=== PATIENT | female | born 1940 | race Caucasian/White ===

== ENCOUNTER → 2016-12-30 | Outpatient (CLI) | payer OTHER ==
[~2016-12-30] MED LIST: BRIN1SUS OP; TIMO0.5S32 OP; TRAV0.007 OP
[2016-12-30 09:27] LABS: Urine RBC None Seen /hpf (0 - 4)
[2016-12-30 09:35] LABS: Basophils # (auto) 0.1 uL; Basophils % (auto) 1.8 % (0.0-2.0); Eosinophils # (auto) 0.5 uL; Eosinophils % (auto) 7.8 % (0.0-7.0); Hematocrit 46.1 % (36.0-46.0); Hemoglobin 14.4 g/dL (12.2-16.2); Lymphocytes # (auto) 1.8 uL; Lymphocytes % (auto) 27.6 % (10.0-50.0); Mean Corpuscular Hemoglobin 28.6 pg (28.0-32.0); Mean Corpuscular Hgb Conc. 31.3 g/dL (32.0-36.0); Mean Corpuscular Volume 91.6 fL (80.0-100.0); Monocytes # (auto) 0.6 uL; Monocytes % (auto) 8.9 % (0.0-12.0); Neutrophils # (auto) 3.5 uL; Neutrophils % (auto) 53.9 % (37.0-80.0); Platelet Count (auto) 199 10^3/uL (140-450); White Blood Cell 6.6 10^3/uL (4.4-10.8)
[2016-12-30 09:46] LABS: Urine Bilirubin Negative (Negative); Urine Blood Negative /uL (Negative); Urine Color Yellow (Yellow); Urine Glucose Normal (Normal); Urine Ketone Negative (Negative); Urine Nitrite Negative (Negative); Urine Squamous Epithelial Cell FEW /hpf (<5); Urine Urobilinogen Normal (Negative)
[2016-12-30 09:58] LABS: Potassium 3.9 mmol/L (3.5-5.1)
[2016-12-30 10:07] LABS: Albumin 3.8 g/dL (3.4-5.0); Bilirubin, Total 0.4 mg/dL (0.2-1.0); Calcium 8.9 mg/dL (8.5-10.1); Total Protein 7.2 g/dL (6.4-8.2)
== END | disposition home or self-care (01) ==
LOC: LAB 08:51
PROVIDERS: ATTEND Internal Medicine
DX: Z00.00 Encounter for general adult medical examination without abnormal findings (principal)
CPT/HCPCS: 36415; 80053; 80061; 81001; 82270; 83036; 84443; 85025; 85652; 86141

== ENCOUNTER → 2017-01-31 | Outpatient (CLI) | payer OTHER | END | disposition home or self-care (01) | LOC: XY 10:43 | PROVIDERS: ATTEND Internal Medicine | DX: I73.89 Other specified peripheral vascular diseases (principal); I70.8 Atherosclerosis of other arteries; I74.3 Embolism and thrombosis of arteries of the lower extremities; I74.2 Embolism and thrombosis of arteries of the upper extremities | CPT/HCPCS: 93923; 93925 ==

== ENCOUNTER → 2017-03-15 | Outpatient (CLI) | payer OTHER | END | disposition home or self-care (01) | LOC: LAB 13:32 | PROVIDERS: ATTEND Internal Medicine | DX: I74.9 Embolism and thrombosis of unspecified artery (principal) | CPT/HCPCS: 36415; 82565; 84520 ==

== ENCOUNTER → 2017-06-08 | Outpatient (CLI) | payer OTHER ==
[2017-06-08 09:50] LABS: Urine RBC None Seen /hpf (0 - 4)
[2017-06-08 10:03] LABS: Urine Bilirubin Negative (Negative); Urine Blood Negative /uL (Negative); Urine Color Yellow (Yellow); Urine Glucose Normal (Normal); Urine Ketone Negative (Negative); Urine Nitrite Negative (Negative); Urine Squamous Epithelial Cell FEW /hpf (<5); Urine Urobilinogen Normal (Negative)
[2017-06-08 10:04] LABS: Basophils # (auto) 0.1 uL; Basophils % (auto) 1.2 % (0.0-2.0); CONDITION Y; Eosinophils # (auto) 0.4 uL; Eosinophils % (auto) 6.9 % (0.0-7.0); Hematocrit 44.7 % (36.0-46.0); Hemoglobin 14.7 g/dL (12.2-16.2); Lymphocytes # (auto) 1.7 uL; Lymphocytes % (auto) 26.4 % (10.0-50.0); Mean Corpuscular Hemoglobin 30.4 pg (28.0-32.0); Mean Corpuscular Hgb Conc. 32.9 g/dL (32.0-36.0); Mean Corpuscular Volume 92.4 fL (80.0-100.0); Mean Platelet Volume 12.2 fL (7.4-10.4); Monocytes # (auto) 0.7 uL; Monocytes % (auto) 10.4 % (0.0-12.0); Neutrophils # (auto) 3.5 uL; Neutrophils % (auto) 55.1 % (37.0-80.0); Platelet Count (auto) 188 10^3/uL (140-450); Red Cell Distribution Width 12.6 % (11.6-16.0); SUSPECT SEE PRINTOUT; White Blood Cell 6.4 10^3/uL (4.4-10.8)
[2017-06-08 10:12] LABS: INR 1.08 (0.9-1.15); Prothrombin Time 11.8 sec (9.37-12.3)
[2017-06-08 10:30] LABS: BUN/Creatinine Ratio 27.5; Calcium 8.9 mg/dL (8.5-10.1); Potassium 4.2 mmol/L (3.5-5.1)
[2017-06-08 11:32] LABS: Platelet Estimate Adequate; RBC Morphology Normal
== END | disposition home or self-care (01) ==
LOC: LAB 07:57
PROVIDERS: ATTEND Internal Medicine
DX: I10 Essential (primary) hypertension (principal); E78.2 Mixed hyperlipidemia; E11.9 Type 2 diabetes mellitus without complications; I70.202 Unspecified atherosclerosis of native arteries of extremities, left leg
CPT/HCPCS: 36415; 80048; 80061; 81001; 83036; 85025; 85610

== ENCOUNTER → 2017-09-13 | Outpatient (CLI) | payer OTHER ==
[~2017-09-13] MED LIST changes: -BRIN1SUS OP; +DORZ1SOL OP; +LATA0.0015 EACHEYE; -TRAV0.007 OP
[2017-09-13 09:46] LABS: Basophils # (auto) 0.1 uL; Basophils % (auto) 1.2 % (0.0-2.0); Eosinophils # (auto) 0.3 uL; Eosinophils % (auto) 3.9 % (0.0-7.0); Hematocrit 42.5 % (36.0-46.0); Hemoglobin 13.9 g/dL (12.2-16.2); Lymphocytes # (auto) 1.5 uL; Lymphocytes % (auto) 22.9 % (10.0-50.0); Mean Corpuscular Hemoglobin 30.3 pg (28.0-32.0); Mean Corpuscular Hgb Conc. 32.7 g/dL (32.0-36.0); Mean Corpuscular Volume 92.8 fL (80.0-100.0); Mean Platelet Volume 11.3 fL (6.9-10.8); Monocytes # (auto) 0.7 uL; Monocytes % (auto) 10.5 % (0.0-12.0); Neutrophils % (auto) 61.5 % (37.0-80.0); Platelet Count (auto) 145 10^3/uL (140-450); White Blood Cell 6.5 10^3/uL (4.4-10.8)
[2017-09-13 10:03] LABS: Albumin 4.3 g/dL (3.4-5.0); BUN/Creatinine Ratio 22.7; Bilirubin, Total 0.6 mg/dL (0.2-1.0); Calcium 9.2 mg/dL (8.5-10.1); Potassium 3.9 mmol/L (3.5-5.1); Total Protein 7.7 g/dL (6.4-8.2)
== END | disposition home or self-care (01) ==
LOC: LAB 09:16
PROVIDERS: ATTEND Internal Medicine
DX: I10 Essential (primary) hypertension (principal); E78.2 Mixed hyperlipidemia; E11.9 Type 2 diabetes mellitus without complications; Z79.899 Other long term (current) drug therapy
CPT/HCPCS: 36415; 80053; 80061; 83036; 85025

== ENCOUNTER 2018-03-27 15:00 | Emergency (ER) | payer OTHER ==
[~2018-03-27] VITALS: Ht 154.9 cm; Wt 47.6 kg
[2018-03-27 19:24] VITALS: BP 167/58
[2018-03-27 19:56] LABS: Urine Amorphous Crystal FEW /hpf (None Seen); Urine Bacteria FEW /hpf (None Seen); Urine Blood Negative /uL (Negative); Urine Specific Gravity 1.013 (1.001-1.035); Urine WBC 24 /hpf (0 - 5)
== END 2018-03-27 20:23 | disposition home or self-care (01) ==
LOC: ER 15:00
DX: M79.604 Pain in right leg (principal); J44.9 Chronic obstructive pulmonary disease, unspecified; Z79.899 Other long term (current) drug therapy; Z98.51 Tubal ligation status; Z89.612 Acquired absence of left leg above knee; Z86.718 Personal history of other venous thrombosis and embolism
CPT/HCPCS: 81001; 93971

== ENCOUNTER → 2018-04-18 | Outpatient (CLI) | payer OTHER ==
[2018-04-18 08:32] LABS: Basophils # (auto) 0 uL; Basophils % (auto) 0.3 % (0.0-2.0); Eosinophils # (auto) 0.2 uL; Eosinophils % (auto) 2.5 % (0.0-7.0); Hematocrit 44.5 % (36.0-46.0); Hemoglobin 14.6 g/dL (12.2-16.2); Lymphocytes # (auto) 1.2 uL; Lymphocytes % (auto) 19.2 % (10.0-50.0); Mean Corpuscular Hemoglobin 30.7 pg (28.0-32.0); Mean Corpuscular Hgb Conc. 32.9 g/dL (32.0-36.0); Mean Corpuscular Volume 93.2 fL (80.0-100.0); Monocytes # (auto) 0.6 uL; Monocytes % (auto) 9.1 % (0.0-12.0); Neutrophils # (auto) 4.3 uL; Neutrophils % (auto) 68.9 % (37.0-80.0); Nucleated Red Blood Cells % 0.1 %; Platelet Count (auto) 208 10^3/uL (140-450); Red Blood Cells 4.78 10^6/uL (4.0-5.20); White Blood Cell 6.2 10^3/uL (4.4-10.8)
[2018-04-18 09:45] LABS: Albumin 3.8 g/dL (3.4-5.0); BUN/Creatinine Ratio 28.1; Bilirubin, Total 0.3 mg/dL (0.2-1.0); Calcium 9.4 mg/dL (8.5-10.1); Potassium 4.1 mmol/L (3.5-5.1); Total Protein 7.4 g/dL (6.4-8.2)
== END | disposition home or self-care (01) ==
LOC: LAB 08:05
PROVIDERS: ATTEND Internal Medicine
DX: Z00.01 Encounter for general adult medical examination with abnormal findings (principal); N39.0 Urinary tract infection, site not specified; E78.5 Hyperlipidemia, unspecified; R79.89 Other specified abnormal findings of blood chemistry
CPT/HCPCS: 36415; 80053; 80061; 82270; 82306; 83036; 84443; 85025; 87086

== ENCOUNTER → 2018-05-22 | Outpatient (CLI) | payer OTHER | END | disposition home or self-care (01) | LOC: LAB 14:54 | PROVIDERS: ATTEND Internal Medicine | DX: L03.90 Cellulitis, unspecified (principal); J44.9 Chronic obstructive pulmonary disease, unspecified; E78.5 Hyperlipidemia, unspecified; I12.9 Hypertensive chronic kidney disease with stage 1 through stage 4 chronic kidney disease, or unspecified chronic kidney disease; E11.22 Type 2 diabetes mellitus with diabetic chronic kidney disease; N18.2 Chronic kidney disease, stage 2 (mild); E78.00 Pure hypercholesterolemia, unspecified; E03.9 Hypothyroidism, unspecified; Z79.899 Other long term (current) drug therapy | CPT/HCPCS: 87205 ==

== ENCOUNTER → 2018-07-06 | Outpatient (CLI) | payer OTHER ==
[~2018-07-06] MED LIST changes: +ASPI-231 PO; +ATOR10TA52 PO
== END | disposition home or self-care (01) ==
LOC: XY 09:09
PROVIDERS: ATTEND Podiatrist
DX: I77.1 Stricture of artery (principal); I73.9 Peripheral vascular disease, unspecified; M25.474 Effusion, right foot; J44.9 Chronic obstructive pulmonary disease, unspecified; Z79.899 Other long term (current) drug therapy
CPT/HCPCS: 93925

== ENCOUNTER → 2018-08-02 | Outpatient (CLI) | payer OTHER ==
[2018-08-02 16:00] LABS: Basophils # (auto) 0.1 uL; Eosinophils # (auto) 0.2 uL; Eosinophils % (auto) 3.4 % (0.0-7.0); Hematocrit 44.5 % (36.0-46.0); Hemoglobin 15.2 g/dL (12.2-16.2); Lymphocytes # (auto) 1.8 uL; Lymphocytes % (auto) 27.6 % (10.0-50.0); Mean Corpuscular Hemoglobin 31.6 pg (28.0-32.0); Mean Corpuscular Hgb Conc. 34.1 g/dL (32.0-36.0); Mean Corpuscular Volume 92.7 fL (80.0-100.0); Monocytes # (auto) 0.5 uL; Neutrophils # (auto) 3.9 uL; Nucleated Red Blood Cells % 0.1 %; Platelet Count (auto) 192 10^3/uL (140-450); Red Cell Distribution Width 13.3 % (11.8-14.3); White Blood Cell 6.6 10^3/uL (4.4-10.8)
[2018-08-02 16:14] LABS: INR 1.07 (0.9-1.15); Prothrombin Time 11.4 sec (9.27-12.13)
[2018-08-02 16:40] LABS: Albumin 4.4 g/dL (3.4-5.0); BUN/Creatinine Ratio 28.4; Bilirubin, Total 0.6 mg/dL (0.2-1.0); Calcium 9.6 mg/dL (8.5-10.1); Potassium 4.3 mmol/L (3.5-5.1); Total Protein 8.3 g/dL (6.4-8.2)
== END | disposition home or self-care (01) ==
LOC: LAB 15:23
PROVIDERS: ATTEND Internal Medicine
DX: Z01.818 Encounter for other preprocedural examination (principal); I73.9 Peripheral vascular disease, unspecified; J44.9 Chronic obstructive pulmonary disease, unspecified; I12.9 Hypertensive chronic kidney disease with stage 1 through stage 4 chronic kidney disease, or unspecified chronic kidney disease; N18.3 Chronic kidney disease, stage 3 (moderate); E03.9 Hypothyroidism, unspecified
CPT/HCPCS: 36415; 80053; 85025; 85610; 85730

== ENCOUNTER 2018-08-03 07:13 | Inpatient (IN) | payer OTHER ==
[~2018-08-03] VITALS: Ht 157.5 cm; Wt 46.5 kg
[~2018-08-03 07:13] MED LIST changes: -ASPI-231 PO; -ATOR10TA52 PO
[2018-08-03] MEDS ORDERED: LIDOCAINE 2%HCL (LOCAL ANESTH.) INJ 20ML MDV ONE (07:47)
[2018-08-03] MEDS ORDERED: IOHEXOL 350 MG/ML 100ML IJ ONE (07:51)
[2018-08-03] MEDS ORDERED: ANGIOMAX 250 MG VIAL IV ONE (09:02)
[2018-08-03] MEDS ORDERED: MIDAZOLAM HCL 1MG/1ML-2 ML VIAL ONE (09:03)
[2018-08-03] MEDS ORDERED: SODIUM CHL 0.9% 50 ML ONE (09:03)
[2018-08-03] MEDS ORDERED: fentaNYL CITRATE 100 MCG/2 ML VL ONE (09:03)
[2018-08-03] MEDS ORDERED: CLOPIDOGREL 300 MG TAB ONE (10:48)
[2018-08-03] MEDS ORDERED: ASPirin 325 MG TAB ONE (10:59)
[2018-08-03] MEDS ORDERED: ASPI-231 PO (12:24)
[2018-08-03] MEDS ORDERED: ATOR10TA52 PO (12:24)
[2018-08-03] MEDS ORDERED: ONDANSETRON HCL 4 MG/2 ML VIAL IV PRN (12:30)
[2018-08-03] MEDS ORDERED: HYDROcodone-ACET 5/325MG TAB PO PRN (12:30)
[2018-08-03] MEDS ORDERED: ACETAMINOPHEN 500 MG TAB PO PRN (12:30)
[2018-08-03 17:00] VITALS: BP 137/69
[2018-08-03 22:00] VITALS: BP 111/59
[2018-08-03] MEDS ORDERED: ATORVASTATIN 20 MG TAB PO SCH (22:00)
[2018-08-04 05:00] VITALS: BP 107/58
[2018-08-04 09:00] VITALS: BP 117/55
[2018-08-04] MEDS ORDERED: CLOPIDOGREL BISULFATE 75 MG TAB PO SCH (10:00)
[2018-08-04] MEDS ORDERED: ASPirin-EC 81 mg tab PO SCH (10:00)
[2018-08-04] MEDS ORDERED: ZONTIVITY 2.08 MG PO SCH (10:00)
[2018-08-04] MEDS ORDERED: PATIENTS OWN MEDICATION (Atorvastatin Calcium 1 TAB) PO SCH (10:00)
[2018-08-04 13:00] VITALS: BP 119/51
== END 2018-08-04 16:00 | disposition home or self-care (01) | DRG 271 ==
LOC: CATH 07:13 → TELE-CENTR 07:14
PROVIDERS: ADMIT Internal Medicine; ATTEND Internal Medicine
PROC: 047K341 Dilation of Right Femoral Artery with Drug-eluting Intraluminal Device, using Drug-Coated Balloon, Percutaneous Approach (ICD-10-PCS; principal; 2018-08-03)
PROC: 04CK3ZZ Extirpation of Matter from Right Femoral Artery, Percutaneous Approach (ICD-10-PCS; 2018-08-03)
PROC: B41G1ZZ Fluoroscopy of Left Lower Extremity Arteries using Low Osmolar Contrast (ICD-10-PCS; 2018-08-03)
PROC: B41F1ZZ Fluoroscopy of Right Lower Extremity Arteries using Low Osmolar Contrast (ICD-10-PCS; 2018-08-03)
DX: I73.9 Peripheral vascular disease, unspecified (principal); I74.3 Embolism and thrombosis of arteries of the lower extremities; I99.8 Other disorder of circulatory system; Z89.612 Acquired absence of left leg above knee; Z87.891 Personal history of nicotine dependence
CPT/HCPCS: 37227; 75716; 99152; 99153; A6257; J2250

== ENCOUNTER → 2018-08-20 | Outpatient (CLI) | payer OTHER ==
[~2018-08-20] MED LIST changes: +ASPI-231 PO; +ATOR10TA52 PO
== END | disposition home or self-care (01) ==
LOC: LAB 13:38
PROVIDERS: ATTEND Podiatrist
DX: Z01.818 Encounter for other preprocedural examination (principal); Z87.891 Personal history of nicotine dependence
CPT/HCPCS: 36415; 82565; 84520

== ENCOUNTER → 2018-10-05 | Outpatient (CLI) | payer OTHER ==
[~2018-10-05] MED LIST changes: +CILO100T PO; +CLOP75TA28 PO; +TIMO1SOL6 OP
[2018-10-05 11:38] LABS: Basophils # (auto) 0.1 uL; Basophils % (auto) 0.8 % (0.0-2.0); Eosinophils # (auto) 0.1 uL; Eosinophils % (auto) 1.8 % (0.0-7.0); Hematocrit 46.5 % (36.0-46.0); Hemoglobin 15.5 g/dL (12.2-16.2); Lymphocytes # (auto) 1.4 uL; Lymphocytes % (auto) 20.6 % (10.0-50.0); Mean Corpuscular Hemoglobin 31.3 pg (28.0-32.0); Mean Corpuscular Hgb Conc. 33.3 g/dL (32.0-36.0); Mean Corpuscular Volume 94.2 fL (80.0-100.0); Monocytes # (auto) 0.4 uL; Monocytes % (auto) 6.4 % (0.0-12.0); Neutrophils # (auto) 4.6 uL; Neutrophils % (auto) 70.4 % (37.0-80.0); Platelet Count (auto) 220 10^3/uL (140-450); Red Blood Cells 4.94 10^6/uL (4.0-5.20); Red Cell Distribution Width 12.6 % (11.8-14.3); White Blood Cell 6.5 10^3/uL (4.4-10.8)
[2018-10-05 12:00] LABS: INR 1.12 (0.9-1.15); Partial Thromboplastin Time 28.6 sec (23.78-33.04); Prothrombin Time 11.9 sec (9.27-12.13)
[2018-10-05 12:39] LABS: Potassium 3.9 mmol/L (3.5-5.1)
[2018-10-05 12:52] LABS: Albumin 4.3 g/dL (3.4-5.0); BUN/Creatinine Ratio 20.7; Bilirubin, Total 0.6 mg/dL (0.2-1.0); Calcium 9.5 mg/dL (8.5-10.1); Total Protein 8.1 g/dL (6.4-8.2)
== END | disposition home or self-care (01) ==
LOC: LAB 10:41
PROVIDERS: ATTEND Internal Medicine
DX: Z01.812 Encounter for preprocedural laboratory examination (principal)
CPT/HCPCS: 36415; 80053; 85025; 85610; 85730

== ENCOUNTER → 2019-03-29 | Outpatient (CLI) | payer OTHER ==
[~2019-03-29] MED LIST changes: -DORZ1SOL OP; -TIMO0.5S32 OP
[2019-03-29 10:09] LABS: Basophils # (auto) 0.1 uL; Basophils % (auto) 1.3 % (0.0-2.0); Eosinophils # (auto) 0.2 uL; Eosinophils % (auto) 2.8 % (0.0-7.0); Hematocrit 41.9 % (36.0-46.0); Hemoglobin 13.8 g/dL (12.2-16.2); Lymphocytes # (auto) 1.3 uL; Lymphocytes % (auto) 19.7 % (10.0-50.0); Mean Corpuscular Hemoglobin 30.1 pg (28.0-32.0); Mean Corpuscular Hgb Conc. 32.9 g/dL (32.0-36.0); Mean Corpuscular Volume 91.4 fL (80.0-100.0); Monocytes # (auto) 0.5 uL; Monocytes % (auto) 7.7 % (0.0-12.0); Neutrophils # (auto) 4.6 uL; Neutrophils % (auto) 68.5 % (37.0-80.0); Platelet Count (auto) 213 10^3/uL (140-450); Red Blood Cells 4.59 10^6/uL (4.0-5.20); White Blood Cell 6.7 10^3/uL (4.4-10.8)
[2019-03-29 10:14] LABS: Urine Bacteria NONE SEEN /hpf (None Seen); Urine Blood Negative /uL (Negative); Urine Specific Gravity 1.008 (1.001-1.035); Urine WBC <1 /hpf (0 - 5)
[2019-03-29 11:15] LABS: Potassium 3.9 mmol/L (3.5-5.1)
[2019-03-29 11:26] LABS: Albumin 4.1 g/dL (3.4-5.0); BUN/Creatinine Ratio 31.6; Bilirubin, Total 0.3 mg/dL (0.2-1.0); Calcium 9.1 mg/dL (8.5-10.1); Total Protein 7.5 g/dL (6.4-8.2)
== END | disposition home or self-care (01) ==
LOC: LAB 09:19
PROVIDERS: ATTEND Internal Medicine
DX: I73.9 Peripheral vascular disease, unspecified (principal); R73.03 Prediabetes
CPT/HCPCS: 36415; 80053; 80061; 81001; 82043; 83036; 84439; 84443; 85025; 85652

== ENCOUNTER → 2019-10-14 | Outpatient (CLI) | payer OTHER ==
[2019-10-14 12:08] LABS: Basophils # (auto) 0.1 uL; Eosinophils # (auto) 0.1 uL; Mean Corpuscular Volume 71.3 fL (80.0-100.0); Monocytes # (auto) 0.6 uL; White Blood Cell 7.6 10^3/uL (4.4-10.8)
[2019-10-14 12:10] LABS: Basophils % (auto) 0.8 % (0.0-2.0); Eosinophils % (auto) 1.3 % (0.0-7.0); Hematocrit 22.2 % (36.0-46.0); Lymphocytes # (auto) 1.5 uL; Mean Corpuscular Hemoglobin 20.8 pg (28.0-32.0); Mean Corpuscular Hgb Conc. 29.2 g/dL (32.0-36.0); Monocytes % (auto) 7.5 % (0.0-12.0); Neutrophils # (auto) 5.5 uL; Neutrophils % (auto) 71.4 % (37.0-80.0); Platelet Count (auto) 327 10^3/uL (140-450); Red Blood Cells 3.12 10^6/uL (4.0-5.20); Red Cell Distribution Width 19.7 % (11.8-14.3)
[2019-10-14 12:28] LABS: Hemoglobin 6.5 g/dL (12.2-16.2)
[2019-10-14 12:59] LABS: Albumin 3.6 g/dL (3.4-5.0); BUN/Creatinine Ratio 29.3; Calcium 8.7 mg/dL (8.5-10.1); Potassium 3.7 mmol/L (3.5-5.1)
[2019-10-14 13:02] LABS: Bilirubin, Total 0.3 mg/dL (0.2-1.0)
== END | disposition home or self-care (01) ==
LOC: LAB 11:47
PROVIDERS: ATTEND Internal Medicine
DX: R53.83 Other fatigue (principal); I10 Essential (primary) hypertension; J44.9 Chronic obstructive pulmonary disease, unspecified; Z87.891 Personal history of nicotine dependence
CPT/HCPCS: 36415; 80053; 84439; 84443; 85025

== ENCOUNTER → 2019-11-12 | Outpatient (CLI) | payer OTHER ==
[2019-11-12 11:16] LABS: Basophils # (auto) 0.1 uL; Eosinophils # (auto) 0.1 uL; Hemoglobin 10.8 g/dL (12.2-16.2); Monocytes # (auto) 0.5 uL; Neutrophils # (auto) 4.6 uL; Nucleated Red Blood Cells % 0.1 %; White Blood Cell 6.9 10^3/uL (4.4-10.8)
[2019-11-12 11:17] LABS: Basophils % (auto) 1.8 % (0.0-2.0); Eosinophils % (auto) 1.7 % (0.0-7.0); Hematocrit 34.6 % (36.0-46.0); Lymphocytes # (auto) 1.6 uL; Lymphocytes % (auto) 22.8 % (10.0-50.0); Mean Corpuscular Hemoglobin 22.4 pg (28.0-32.0); Mean Corpuscular Hgb Conc. 31.2 g/dL (32.0-36.0); Mean Corpuscular Volume 71.9 fL (80.0-100.0); Monocytes % (auto) 7.5 % (0.0-12.0); Neutrophils % (auto) 66.2 % (37.0-80.0); Platelet Count (auto) 281 10^3/uL (140-450); Red Blood Cells 4.82 10^6/uL (4.0-5.20)
[2019-11-12 11:20] LABS: Red Cell Distribution Width 23.1 % (11.8-14.3)
== END | disposition home or self-care (01) ==
LOC: LAB 10:53
PROVIDERS: ATTEND Internal Medicine
DX: D64.9 Anemia, unspecified (principal)
CPT/HCPCS: 36415; 83540; 85025

== ENCOUNTER → 2019-12-11 | Outpatient (CLI) | payer OTHER, MEDICARE ==
[2019-12-11 12:16] LABS: Basophils # (auto) 0.1 uL; Eosinophils # (auto) 0.1 uL; Lymphocytes % (auto) 21.6 % (10.0-50.0); Nucleated Red Blood Cells % 0.1 %
[2019-12-11 12:19] LABS: Eosinophils % (auto) 1.9 % (0.0-7.0); Hematocrit 39.1 % (36.0-46.0); Hemoglobin 12.7 g/dL (12.2-16.2); Lymphocytes # (auto) 1.2 uL; Mean Corpuscular Hemoglobin 25.7 pg (28.0-32.0); Mean Corpuscular Hgb Conc. 32.5 g/dL (32.0-36.0); Mean Corpuscular Volume 78.9 fL (80.0-100.0); Monocytes # (auto) 0.6 uL; Monocytes % (auto) 9.9 % (0.0-12.0); Neutrophils # (auto) 3.7 uL; Neutrophils % (auto) 65.6 % (37.0-80.0); Platelet Count (auto) 208 10^3/uL (140-450); Red Blood Cells 4.96 10^6/uL (4.0-5.20); White Blood Cell 5.6 10^3/uL (4.4-10.8)
[2019-12-11 12:20] LABS: Red Cell Distribution Width 31.8 % (11.8-14.3)
== END | disposition home or self-care (01) ==
LOC: LAB 11:48
PROVIDERS: ATTEND Internal Medicine Gastroenterology
DX: D64.9 Anemia, unspecified (principal)
CPT/HCPCS: 36415; 85025

== ENCOUNTER → 2019-12-23 | Outpatient (CLI) | payer OTHER | END | disposition home or self-care (01) | LOC: LAB 10:58 | PROVIDERS: ATTEND Internal Medicine | DX: D64.9 Anemia, unspecified (principal); I73.9 Peripheral vascular disease, unspecified | CPT/HCPCS: 82270 ==

== ENCOUNTER 2019-12-26 17:03 | Inpatient (IN) | payer OTHER ==
[~2019-12-26] VITALS: Ht 157.5 cm; Wt 47.5 kg
[2019-12-26 19:31] LABS: Basophils # (auto) 0.1 uL; Basophils % (auto) 1.6 % (0.0-2.0); Eosinophils # (auto) 0.2 uL; Eosinophils % (auto) 3.3 % (0.0-7.0); Hematocrit 41.3 % (36.0-46.0); Hemoglobin 13.8 g/dL (12.2-16.2); Lymphocytes # (auto) 1.8 uL; Lymphocytes % (auto) 29.2 % (10.0-50.0); Mean Corpuscular Hemoglobin 26.9 pg (28.0-32.0); Mean Corpuscular Hgb Conc. 33.3 g/dL (32.0-36.0); Mean Corpuscular Volume 80.8 fL (80.0-100.0); Monocytes # (auto) 0.6 uL; Monocytes % (auto) 9.2 % (0.0-12.0); Neutrophils # (auto) 3.5 uL; Neutrophils % (auto) 56.7 % (37.0-80.0); Platelet Count (auto) 186 10^3/uL (140-450); Red Blood Cells 5.11 10^6/uL (4.0-5.20); White Blood Cell 6.1 10^3/uL (4.4-10.8)
[2019-12-26 19:33] LABS: Red Cell Distribution Width 30.9 % (11.8-14.3)
[2019-12-26 19:45] LABS: Albumin 4.2 g/dL (3.4-5.0); BUN/Creatinine Ratio 37.3; Calcium 9.1 mg/dL (8.5-10.1); Potassium 3.5 mmol/L (3.5-5.1)
[2019-12-26 19:48] LABS: Bilirubin, Total 0.4 mg/dL (0.2-1.0); Total Protein 7.6 g/dL (6.4-8.2)
[2019-12-26 19:53] LABS: INR 1.14 (0.9-1.15); Partial Thromboplastin Time 27.4 sec (23.64-32.05)
[2019-12-26] MEDS ORDERED: MORPHINE SULF INJ 2 MG/ML SYRINGE 1ML IV PRN (21:15)
[2019-12-26] MEDS ORDERED: TEMAZEPAM 15 MG CAP PO PRN (21:15)
[2019-12-26] MEDS ORDERED: ONDANSETRON HCL 4 MG/2 ML VIAL IV PRN (21:15)
[2019-12-26] MEDS ORDERED: ACETAMINOPHEN 325 MG TAB PO PRN (21:15)
[2019-12-26] MEDS ORDERED: HYDROcodone-ACET 5/325MG TAB PO PRN (21:15)
[2019-12-26] MEDS: ATORVASTATIN 20 MG TAB PO SCH (21:30)
[2019-12-26] MEDS: SODIUM CHLORIDE 0.9% 1,000 ML IV SCH (21:30)
[2019-12-26] MEDS: FAMOTIDINE 20 MG TAB PO SCH (21:49)
[2019-12-26 22:00] VITALS: BP 155/78
--- NOTE | 2019-12-26 22:00 | NUR ---
Patient arrived to unit via wheelchair. She is AO x4 and on room air. She has a left aka but she able to transfer by herself without assistance to her wheelchair/commode. She currently does not have pain in the right foot unless touched. it is visibly enflamed being red. She has no complaints of shortness of breath or chest pain. Pedal pulse in the foot was present. Bed is locked in lowest position with side rails up x2. Will continue to monitor.
[2019-12-27 05:00] VITALS: BP 124/66
[2019-12-27 05:56] LABS: Basophils # (auto) 0.1 uL; Basophils % (auto) 1.5 % (0.0-2.0); Eosinophils # (auto) 0.2 uL; Mean Corpuscular Hemoglobin 26.5 pg (28.0-32.0); Neutrophils # (auto) 2.5 uL; Nucleated Red Blood Cells % 0.1 %
[2019-12-27 05:58] LABS: Eosinophils % (auto) 4.3 % (0.0-7.0); Hematocrit 36.4 % (36.0-46.0); Lymphocytes # (auto) 1.5 uL; Lymphocytes % (auto) 30.8 % (10.0-50.0); Mean Corpuscular Hgb Conc. 32.9 g/dL (32.0-36.0); Mean Corpuscular Volume 80.6 fL (80.0-100.0); Monocytes # (auto) 0.6 uL; Monocytes % (auto) 12.8 % (0.0-12.0); Neutrophils % (auto) 50.6 % (37.0-80.0); Platelet Count (auto) 140 10^3/uL (140-450); Red Blood Cells 4.52 10^6/uL (4.0-5.20); White Blood Cell 4.9 10^3/uL (4.4-10.8)
[2019-12-27 05:59] LABS: Red Cell Distribution Width 30.9 % (11.8-14.3)
[2019-12-27] MEDS: CLINDAMYCIN 600MG IV 50 ML IV SCH ×3 (06:11→22:21)
[2019-12-27 06:15] LABS: Calcium 8.4 mg/dL (8.5-10.1); Potassium 3.8 mmol/L (3.5-5.1)
[2019-12-27 06:18] LABS: BUN/Creatinine Ratio 38.1
--- NOTE | 2019-12-27 07:30 | NUR ---
Opening Shift Note Assuming care of patient at this time. Patient is awake and alert. Patient denies pain. Patient shows no signs or symptoms of distress or shortness of breath. Bed is locked and lowered with side rails up x2. Instructed patient on the plan of care for today and to call for assistance as needed. Call light within reach. Will continue to round hourly and as needed.
[2019-12-27 09:00] VITALS: BP 129/71
[2019-12-27] MEDS: FAMOTIDINE 20 MG TAB PO SCH (10:00)
[2019-12-27 13:00] VITALS: BP 109/56
--- NOTE | 2019-12-27 13:03 | NUR ---
at bedside Dr. Farris at bedside. Signed: 12/27/19 at 1631 by FARNAZ NYE SN <Co-Signature Required> Co-Signed: 12/27/19 at 1631 by AIYANA VOGEL RN RN
[2019-12-27] MEDS: CLOPIDOGREL BISULFATE 75 MG TAB PO SCH (13:30)
--- NOTE | 2019-12-27 13:30 | NUR ---
Plavix Per Dr. Farris, Plavix can be given prior to procedure. Will give at this time per doctor's orders.
--- NOTE | 2019-12-27 13:45 | NUR ---
Patient Off Unit Patient has been taken to rn labor delivery at this time. No distress noted. Will await return to unit.
[2019-12-27] MEDS: SODIUM CHLORIDE 0.9% 1,000 ML IV SCH (13:50)
[2019-12-27 13:51] LABS: Urine Bacteria NONE SEEN /hpf (None Seen); Urine Blood Negative /uL (Negative); Urine Specific Gravity 1.015 (1.001-1.035); Urine WBC 2 /hpf (0 - 5)
[2019-12-27] MEDS ORDERED: IODIXANOL 320MG/ML 100ML BTL IV ONE (14:27)
[2019-12-27] MEDS ORDERED: LIDOCAINE 2%HCL (LOCAL ANESTH.) INJ 20ML MDV ONE ×2 (14:27→16:47)
[2019-12-27] MEDS ORDERED: ANGIOMAX 250 MG VIAL IV ONE ×2 (14:48→17:10)
[2019-12-27] MEDS ORDERED: PHENYLEPHRINE HCL 10 MG/ML VL ONE (14:48)
[2019-12-27] MEDS ORDERED: fentaNYL CITRATE 100 MCG/2 ML VL ONE ×2 (14:49→17:58)
[2019-12-27] MEDS ORDERED: SODIUM CHL 0.9% 50 ML ONE ×2 (14:49→17:10)
[2019-12-27] MEDS ORDERED: GLYCOPYRROLATE 0.2 MG/ML 1ML VIAL ONE (14:49)
[2019-12-27] MEDS ORDERED: ATROPINE SULF 1 MG/10ml SYR ONE (14:49)
[2019-12-27] MEDS ORDERED: DOPamine 1600MCG/ML D5W 0 ML IV ONE (14:49)
[2019-12-27] MEDS ORDERED: MIDAZOLAM HCL 1MG/1ML-2 ML VIAL ONE ×2 (14:49→16:53)
[2019-12-27] MEDS ORDERED: EPINEPHrine HCL 1 MG/10 ML SYRG ONE (14:50)
[2019-12-27] MEDS ORDERED: hydrALAZINE HCL 20 MG/ML VL ONE (14:56)
[2019-12-27] MEDS ORDERED: HEPARIN SODIUM (PORCINE) 5000 UNITS/ML 1ML VIAL ONE (14:58)
[2019-12-27] MEDS ORDERED: IOHEXOL 350 MG/ML 100ML IJ ONE ×3 (15:27→18:59)
[2019-12-27] MEDS ORDERED: NOREPINEPHRINE 8 MG/250ML KIT 250 ML IV ONE (15:44)
[2019-12-27] MEDS ORDERED: VERAPAMIL 2.5MG/ML INJ 2ML VIAL IV ONE (18:12)
--- NOTE | 2019-12-27 19:21 | NUR ---
Closing Shift Note Patient resting in bed. No distress noted. Will endorse care to the director medical surgical. Addendum: 12/27/19 at 1923 by AIYANA VOGEL RN RN Wrong Patient
--- NOTE | 2019-12-27 19:23 | NUR ---
Closing Shift Note Patient still in procedure. Report given. Will endorse care to the fitness supervisor RN.
--- NOTE | 2019-12-27 19:25 | NUR ---
RECEIVED REPORT FROM DAY SHIFT RN. 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
[2019-12-27 21:07] LABS: Basophils # (auto) 0.1 uL; Basophils % (auto) 0.5 % (0.0-2.0); Eosinophils # (auto) 0 uL; Hemoglobin 11.7 g/dL (12.2-16.2); Monocytes # (auto) 0.4 uL; Neutrophils # (auto) 10.8 uL
[2019-12-27 21:09] LABS: Eosinophils % (auto) 0.1 % (0.0-7.0); Hematocrit 39.7 % (36.0-46.0); Lymphocytes # (auto) 0.8 uL; Lymphocytes % (auto) 6.6 % (10.0-50.0); Mean Corpuscular Hemoglobin 25.6 pg (28.0-32.0); Mean Corpuscular Hgb Conc. 29.5 g/dL (32.0-36.0); Monocytes % (auto) 3.1 % (0.0-12.0); Neutrophils % (auto) 89.7 % (37.0-80.0); Platelet Count (auto) 176 10^3/uL (140-450); Red Blood Cells 4.56 10^6/uL (4.0-5.20); White Blood Cell 12.1 10^3/uL (4.4-10.8)
--- NOTE | 2019-12-27 21:10 | NUR ---
PATIENT BACK TO FLOOR VIA HOSPITAL BED. NO S/S OF DISTRESS NOTED. VITALS, BP 118/59, HR 106, RR 18. TEMP 97.6. RIGHT FOOT SKIN COLD AND PINK, DRESSING ON LEFT GROIN C/D/I. PATIENT UNDERSTOOD TO LAY FLAT UNTIL 0200 AM. ASSISTED PATIENT TO BEDPAN. PATIENT TOLERATED WELL. POC INSTRUCTED AND ENCOURAGED PATIENT TO CALL FOR PHOTOGRAPHY COLORIST IF NEEDED. BED IN LOWEST POSITION WITH SIDE RAILS UP X 2. CALL MCCAULEY WITHIN REACH . ALARM ON. CONTINUE TO MONITOR FOR CHANGES Q1H AND PRN.
[2019-12-27 21:13] LABS: Red Cell Distribution Width 31.1 % (11.8-14.3)
[2019-12-27 22:00] VITALS: BP 118/59
[2019-12-27] MEDS: ATORVASTATIN 20 MG TAB PO SCH (22:21)
[2019-12-27] MEDS: APIXABAN 2.5 MG TAB PO SCH (22:21)
--- NOTE | 2019-12-27 23:41 | NUR ---
ASSISTED PATIENT TO BEDPAN. PATIENT TOLERATED WELL. NO S/S OF DISTRESS NOTED. CONTINUE TO MONITOR.
[2019-12-28] MEDS: SODIUM CHLORIDE 0.9% 1,000 ML IV SCH ×2 (00:55→13:15)
--- NOTE | 2019-12-28 02:19 | NUR ---
ASSISTED PATIENT TO BEDPAN. PATIENT TOLERATED WELL. NO S/S OF DISTRESS NOTED. CONTINUE TO MONITOR.
[2019-12-28 05:20] LABS: Basophils # (auto) 0 uL; Basophils % (auto) 0.3 % (0.0-2.0); Eosinophils # (auto) 0 uL; Hemoglobin 10.5 g/dL (12.2-16.2); Lymphocytes # (auto) 0.6 uL; Lymphocytes % (auto) 6.2 % (10.0-50.0); Mean Corpuscular Hgb Conc. 32.7 g/dL (32.0-36.0); Mean Corpuscular Volume 82.4 fL (80.0-100.0); Monocytes # (auto) 0.5 uL; Monocytes % (auto) 5.2 % (0.0-12.0); Neutrophils # (auto) 8.7 uL; Neutrophils % (auto) 88.3 % (37.0-80.0); Platelet Count (auto) 144 10^3/uL (140-450); Red Blood Cells 3.88 10^6/uL (4.0-5.20); White Blood Cell 9.8 10^3/uL (4.4-10.8)
[2019-12-28 05:33] LABS: Red Cell Distribution Width 30.5 % (11.8-14.3)
[2019-12-28 05:35] LABS: BUN/Creatinine Ratio 28.6; Calcium 8.1 mg/dL (8.5-10.1); Potassium 3.8 mmol/L (3.5-5.1)
[2019-12-28] MEDS: CLINDAMYCIN 600MG IV 50 ML IV SCH ×2 (05:45→14:00)
[2019-12-28 05:52] VITALS: BP 110/63
--- NOTE | 2019-12-28 08:30 | NUR ---
Opening Note Assumed care of patient she is A & O x4, no s/s of distress, POC discussed with patient. Bed is in lowest, locked position, call light within reach. Will continue to monitor Q1h and PRN.
[2019-12-28 09:00] VITALS: BP 94/46
--- NOTE | 2019-12-28 10:35 | NUR ---
Dr. Anderson at bedside.
[2019-12-28] MEDS: APIXABAN 2.5 MG TAB PO SCH (11:49)
[2019-12-28] MEDS: FAMOTIDINE 20 MG TAB PO SCH (11:49)
[2019-12-28] MEDS: CLOPIDOGREL BISULFATE 75 MG TAB PO SCH (11:49)
[2019-12-28 12:53] VITALS: BP 91/50
== END 2019-12-28 14:20 | disposition home or self-care (01) | DRG 271 ==
LOC: ER 17:06 → OVERFLOW 17:07 → WEST WING 22:00 → TELE-WESTW 12-28 00:32
PROVIDERS: ADMIT Nurse Practitioner; ATTEND Family Medicine
PROC: 037K3DZ Dilation of Right Internal Carotid Artery with Intraluminal Device, Percutaneous Approach (ICD-10-PCS; principal; 2019-12-27)
PROC: 04CK3ZZ Extirpation of Matter from Right Femoral Artery, Percutaneous Approach (ICD-10-PCS; 2019-12-27)
PROC: 047K3DZ Dilation of Right Femoral Artery with Intraluminal Device, Percutaneous Approach (ICD-10-PCS; 2019-12-27)
PROC: 047M3DZ Dilation of Right Popliteal Artery with Intraluminal Device, Percutaneous Approach (ICD-10-PCS; 2019-12-27)
DX: T82.856A Stenosis of peripheral vascular stent, initial encounter (principal); L03.115 Cellulitis of right lower limb; I65.21 Occlusion and stenosis of right carotid artery; J44.9 Chronic obstructive pulmonary disease, unspecified; I70.291 Other atherosclerosis of native arteries of extremities, right leg; E78.5 Hyperlipidemia, unspecified; Y84.8 Other medical procedures as the cause of abnormal reaction of the patient, or of later complication, without mention of misadventure at the time of the procedure; Z79.899 Other long term (current) drug therapy; Z79.82 Long term (current) use of aspirin; Z90.49 Acquired absence of other specified parts of digestive tract; Z98.51 Tubal ligation status; Z89.612 Acquired absence of left leg above knee; Z82.5 Family history of asthma and other chronic lower respiratory diseases; Z80.42 Family history of malignant neoplasm of prostate; Z81.8 Family history of other mental and behavioral disorders; Z80.9 Family history of malignant neoplasm, unspecified; Z79.01 Long term (current) use of anticoagulants; Z79.02 Long term (current) use of antithrombotics/antiplatelets; Y92.89 Other specified places as the place of occurrence of the external cause
CPT/HCPCS: 36415; 71045; 73700; 80048; 80053; 81001; 83605; 85025; 85610; 85730; 86850; 86900; 86901; 87040; 99152; 99153; C1781; G0378; J2250; J3490; Q9967

== ENCOUNTER → 2020-04-16 | Outpatient (CLI) | payer OTHER ==
[~2020-04-16] MED LIST changes: -LATA0.0015 EACHEYE; +LATA0.0019 EACHEYE
[2020-04-16 09:02] LABS: Basophils # (auto) 0.1 10 ^3/uL (0-0.2); Eosinophils # (auto) 0.1 10 ^3/uL (0-0.8); Eosinophils % (auto) 1.8 % (0.0-7.0); Hematocrit 44.4 % (36.0-46.0); Hemoglobin 14.5 g/dL (12.2-16.2); Lymphocytes # (auto) 1.2 10 ^3/uL (0.4-5.4); Lymphocytes % (auto) 17.8 % (10.0-50.0); Mean Corpuscular Hemoglobin 29.1 pg (28.0-32.0); Mean Corpuscular Hgb Conc. 32.6 g/dL (32.0-36.0); Monocytes # (auto) 0.7 10 ^3/uL (0-1.3); Monocytes % (auto) 10.2 % (0.0-12.0); Neutrophils # (auto) 4.5 10 ^3/uL (1.6-8.6); Neutrophils % (auto) 69.2 % (37.0-80.0); Platelet Count (auto) 201 10^3/uL (140-450); Red Blood Cells 4.99 10^6/uL (4.0-5.20); Red Cell Distribution Width 15.1 % (11.8-14.3); White Blood Cell 6.5 10^3/uL (4.4-10.8)
== END | disposition home or self-care (01) ==
LOC: LAB 08:33
PROVIDERS: ATTEND Internal Medicine
DX: D64.9 Anemia, unspecified (principal); R73.03 Prediabetes; M85.80 Other specified disorders of bone density and structure, unspecified site
CPT/HCPCS: 36415; 82306; 82607; 83036; 83540; 85025

== ENCOUNTER → 2020-06-02 | Outpatient (CLI) | payer OTHER | END | disposition home or self-care (01) | LOC: LAB 10:19 | PROVIDERS: ATTEND Internal Medicine | DX: Z01.812 Encounter for preprocedural laboratory examination (principal) | CPT/HCPCS: 36415; 82565; 84520 ==

== ENCOUNTER → 2020-06-19 | Outpatient (CLI) | payer OTHER ==
[~2020-06-19] MED LIST changes: +APIX2.5T PO; +ATOR20TA50 PO
[2020-06-19 11:04] LABS: Basophils # (auto) 0.1 10 ^3/uL (0-0.2); Eosinophils # (auto) 0.1 10 ^3/uL (0-0.8); Eosinophils % (auto) 1.4 % (0.0-7.0); Hematocrit 44.5 % (36.0-46.0); Hemoglobin 14.7 g/dL (12.2-16.2); Lymphocytes # (auto) 1.4 10 ^3/uL (0.4-5.4); Lymphocytes % (auto) 22.3 % (10.0-50.0); Monocytes # (auto) 0.4 10 ^3/uL (0-1.3); Neutrophils # (auto) 4.1 10 ^3/uL (1.6-8.6); Neutrophils % (auto) 68.3 % (37.0-80.0); Nucleated Red Blood Cells % 0.1 %; Platelet Count (auto) 182 10^3/uL (140-450); Red Blood Cells 4.89 10^6/uL (4.0-5.20); Red Cell Distribution Width 14.9 % (11.8-14.3); White Blood Cell 6.1 10^3/uL (4.4-10.8)
[2020-06-19 11:17] LABS: INR 1.18 (0.9-1.15); Partial Thromboplastin Time 28.8 sec (23.64-32.05)
[2020-06-19 11:34] LABS: Albumin 3.9 g/dL (3.4-5.0); Calcium 9.3 mg/dL (8.5-10.1); Potassium 4.7 mmol/L (3.5-5.1)
[2020-06-19 11:38] LABS: BUN/Creatinine Ratio 32.7; Bilirubin, Total 0.7 mg/dL (0.2-1.0); Total Protein 7.3 g/dL (6.4-8.2)
== END | disposition home or self-care (01) ==
LOC: LAB 10:21
PROVIDERS: ATTEND Internal Medicine
DX: Z01.812 Encounter for preprocedural laboratory examination (principal); D64.9 Anemia, unspecified
CPT/HCPCS: 36415; 80053; 85025; 85610; 85730

== ENCOUNTER 2020-06-24 08:01 | Day surgery (SDC) | payer OTHER ==
[~2020-06-24] VITALS: Ht 157.5 cm; Wt 45.4 kg
[~2020-06-24 08:01] MED LIST changes: -ASPI-231 PO; -ATOR10TA52 PO; -CILO100T PO
[2020-06-24] MEDS ORDERED: IOHEXOL 350 MG/ML 100ML IJ ONE ×2 (11:20→12:29)
[2020-06-24] MEDS ORDERED: LIDOCAINE 2%HCL (LOCAL ANESTH.) INJ 20ML MDV ONE (11:20)
[2020-06-24] MEDS ORDERED: ANGIOMAX 250 MG VIAL IV ONE (11:34)
[2020-06-24] MEDS ORDERED: SODIUM CHL 0.9% 50 ML ONE (11:35)
[2020-06-24] MEDS ORDERED: fentaNYL CITRATE 100 MCG/2 ML VL ONE (11:35)
[2020-06-24] MEDS ORDERED: MIDAZOLAM HCL 1MG/1ML-2 ML VIAL ONE (11:35)
[2020-06-24] MEDS ORDERED: hydrALAZINE HCL 20 MG/ML VL ONE (13:30)
[2020-06-24] MEDS ORDERED: CLOPIDOGREL BISULFATE 75 MG TAB ONE (14:11)
[2020-06-24] MEDS ORDERED: APIXABAN 2.5 MG TAB ONE (14:35)
[2020-06-24] MEDS ORDERED: PATIENTS OWN MEDICATION (ELIQUIS 2.5 MG) PO ONE (14:45)
[2020-06-24] MEDS ORDERED: APIXABAN 2.5 MG TAB PO ONE (14:45)
[2020-06-24] MEDS ORDERED: SODIUM CHL 0.9% 1,000 ML IV ONE (15:15)
[2020-06-24] MEDS ORDERED: ACETAMINOPHEN 500 MG TAB PO PRN (15:15)
[2020-06-24] MEDS ORDERED: HYDROcodone-ACET 5/325MG TAB PO PRN (15:15)
[2020-06-24] MEDS ORDERED: ONDANSETRON HCL 4 MG/2 ML VIAL IV PRN (15:15)
== END 2020-06-24 16:24 | disposition home or self-care (01) ==
LOC: CATH 08:01
PROVIDERS: ATTEND Internal Medicine
DX: I70.211 Atherosclerosis of native arteries of extremities with intermittent claudication, right leg (principal); Z98.890 Other specified postprocedural states; Z11.59 Encounter for screening for other viral diseases; Z95.5 Presence of coronary angioplasty implant and graft
CPT/HCPCS: 37226; 37230; 75716; C1725; C1760; C1769; C1874; C1876; C1887; C1894; J0360; J0583; J1644; J2250; J3010; J7030; Q9967; U0003; 99152; 99153

== ENCOUNTER → 2020-06-26 | Outpatient (CLI) | payer OTHER ==
[2020-06-26 09:06] LABS: Basophils # (auto) 0.1 10 ^3/uL (0-0.2); Basophils % (auto) 0.7 % (0.0-2.0); Eosinophils # (auto) 0 10 ^3/uL (0-0.8); Eosinophils % (auto) 0.4 % (0.0-7.0); Hematocrit 34.6 % (36.0-46.0); Hemoglobin 11.6 g/dL (12.2-16.2); Lymphocytes # (auto) 1.1 10 ^3/uL (0.4-5.4); Lymphocytes % (auto) 11.2 % (10.0-50.0); Mean Corpuscular Hgb Conc. 33.5 g/dL (32.0-36.0); Mean Corpuscular Volume 92.5 fL (80.0-100.0); Monocytes # (auto) 1.6 10 ^3/uL (0-1.3); Monocytes % (auto) 15.7 % (0.0-12.0); Neutrophils # (auto) 7.1 10 ^3/uL (1.6-8.6); Platelet Count (auto) 158 10^3/uL (140-450); Red Blood Cells 3.74 10^6/uL (4.0-5.20); Red Cell Distribution Width 14.7 % (11.8-14.3); White Blood Cell 9.9 10^3/uL (4.4-10.8)
== END | disposition home or self-care (01) ==
LOC: LAB 08:47
PROVIDERS: ATTEND Internal Medicine
DX: I77.1 Stricture of artery (principal); I73.9 Peripheral vascular disease, unspecified
CPT/HCPCS: 36415; 85025

== ENCOUNTER → 2020-09-10 | Outpatient (CLI) | payer OTHER | END | disposition home or self-care (01) | LOC: XY 16:07 | PROVIDERS: ATTEND Internal Medicine | DX: I73.9 Peripheral vascular disease, unspecified (principal); Z89.612 Acquired absence of left leg above knee; Z95.828 Presence of other vascular implants and grafts | CPT/HCPCS: 93926 ==

== ENCOUNTER → 2020-09-18 | Outpatient (CLI) | payer OTHER ==
[2020-09-18 09:56] LABS: Urine WBC None Seen /hpf (0 - 5)
[2020-09-18 10:24] LABS: Urine Amorphous Crystal MOD /hpf (None Seen); Urine Bacteria NONE SEEN /hpf (None Seen); Urine Blood Negative /uL (Negative); Urine Specific Gravity 1.009 (1.001-1.035)
[2020-09-18 10:33] LABS: Albumin 4.2 g/dL (3.4-5.0); Calcium 9.9 mg/dL (8.5-10.1)
[2020-09-18 10:36] LABS: Basophils # (auto) 0.1 10 ^3/uL (0-0.2); Eosinophils # (auto) 0.1 10 ^3/uL (0-0.8); Eosinophils % (auto) 2.1 % (0.0-7.0); Hematocrit 46.8 % (36.0-46.0); Hemoglobin 15.6 g/dL (12.2-16.2); Lymphocytes # (auto) 1.5 10 ^3/uL (0.4-5.4); Lymphocytes % (auto) 22.9 % (10.0-50.0); Mean Corpuscular Hemoglobin 30.9 pg (28.0-32.0); Mean Corpuscular Hgb Conc. 33.4 g/dL (32.0-36.0); Mean Corpuscular Volume 92.7 fL (80.0-100.0); Monocytes # (auto) 0.5 10 ^3/uL (0-1.3); Monocytes % (auto) 8.2 % (0.0-12.0); Neutrophils # (auto) 4.3 10 ^3/uL (1.6-8.6); Neutrophils % (auto) 65.8 % (37.0-80.0); Nucleated Red Blood Cells % 0.1 %; Platelet Count (auto) 169 10^3/uL (140-450); Red Blood Cells 5.05 10^6/uL (4.0-5.20); Red Cell Distribution Width 13.3 % (11.8-14.3); White Blood Cell 6.6 10^3/uL (4.4-10.8)
[2020-09-18 10:40] LABS: BUN/Creatinine Ratio 34.6; Bilirubin, Total 0.6 mg/dL (0.2-1.0); Total Protein 7.7 g/dL (6.4-8.2)
[2020-09-18 10:42] LABS: Free T4 (Free Thyroxine) 1.09 ng/dL (0.89-1.76)
== END | disposition home or self-care (01) ==
LOC: LAB 09:28
PROVIDERS: ATTEND Internal Medicine
DX: I73.9 Peripheral vascular disease, unspecified (principal); D64.9 Anemia, unspecified; E78.5 Hyperlipidemia, unspecified
CPT/HCPCS: 36415; 80053; 80061; 81001; 82607; 83540; 84439; 84443; 85025

== ENCOUNTER 2020-09-24 13:09 | Inpatient (IN) | payer OTHER ==
[~2020-09-24] VITALS: Ht 157.5 cm; Wt 119.9 kg
[2020-09-24 14:29] LABS: Basophils # (auto) 0.1 10 ^3/uL (0-0.2); Eosinophils # (auto) 0.1 10 ^3/uL (0-0.8); Eosinophils % (auto) 1.1 % (0.0-7.0); Hematocrit 45.6 % (36.0-46.0); Hemoglobin 15.6 g/dL (12.2-16.2); Lymphocytes # (auto) 1.8 10 ^3/uL (0.4-5.4); Lymphocytes % (auto) 22.5 % (10.0-50.0); Mean Corpuscular Hemoglobin 31.1 pg (28.0-32.0); Mean Corpuscular Hgb Conc. 34.3 g/dL (32.0-36.0); Mean Corpuscular Volume 90.8 fL (80.0-100.0); Monocytes # (auto) 0.7 10 ^3/uL (0-1.3); Monocytes % (auto) 8.8 % (0.0-12.0); Neutrophils # (auto) 5.3 10 ^3/uL (1.6-8.6); Neutrophils % (auto) 66.6 % (37.0-80.0); Nucleated Red Blood Cells % 0.1 %; Platelet Count (auto) 206 10^3/uL (140-450); Red Blood Cells 5.02 10^6/uL (4.0-5.20); White Blood Cell 7.9 10^3/uL (4.4-10.8)
[2020-09-24 14:50] LABS: Albumin 4.3 g/dL (3.4-5.0); Anion Gap 7 (5-15); Calcium 10.2 mg/dL (8.5-10.1); Carbon Dioxide 28 mmol/L (21-32); Chloride 100 mmol/L (98-107); Glucose 97 mg/dL (74-106); Potassium 3.9 mmol/L (3.5-5.1); Sodium 135 mmol/L (136-145)
[2020-09-24 14:54] LABS: INR 1.11 (0.9-1.15)
[2020-09-24 14:57] LABS: Alanine Aminotransferase 13 U/L (13-56); Alkaline Phosphatase 77 U/L (45-117); Aspartate Aminotransferase 14 U/L (15-37); Bilirubin, Total 0.6 mg/dL (0.2-1.0); GFR African American 115 mL/min; GFR Non-African American 95 mL/min; Total Protein 8.1 g/dL (6.4-8.2)
[2020-09-24 15:36] LABS: BUN/Creatinine Ratio 31.3; Blood Urea Nitrogen 20 mg/dL (7-18)
[2020-09-24] MEDS ORDERED: MORPHINE SULF INJ 2 MG/ML SYRINGE 1ML IV PRN ×2 (16:45→17:00)
[2020-09-24] MEDS ORDERED: NITROGLYCERIN 0.4 MG SL TAB SL PRN (16:45)
[2020-09-24] MEDS ORDERED: HEPARIN DRIP/D5W 100UNITS/ML 250 ML IV SCH (17:00)
[2020-09-24] MEDS ORDERED: TEMAZEPAM 15 MG CAP PO PRN (17:00)
[2020-09-24] MEDS ORDERED: ENALAPRILAT 1.25 MG/ML-1ML VIAL IV PRN (17:00)
[2020-09-24] MEDS ORDERED: ALBUTEROL SULF 2.5 MG/0.5ML(0.5%) NEB SOLN NEB PRN (17:00)
[2020-09-24] MEDS ORDERED: PROMETHAZINE HCL 25 MG/ML 1ML IV PRN (17:00)
[2020-09-24] MEDS ORDERED: ACETAMINOPHEN 500 MG TAB PO PRN (17:00)
[2020-09-24] MEDS ORDERED: HEPARIN SODIUM (PORCINE) 5000 UNITS/ML 1ML VIAL IV ONE (17:00)
[2020-09-24] MEDS: SODIUM CHLORIDE 0.9% 1,000 ML IV SCH (17:30)
--- NOTE | 2020-09-24 19:15 | NUR ---
Telemetry admit from [facility] admitted to Telemetry unit after SBAR received. Patient oriented to ÓSCAR BALLESTEROS RN primary RN, unit, room, bed, and unit policies regarding patient care and visiting hours. Patient now on continuous telemetry monitoring, tele box #50 and telemetry reading on arrival to unit is SR 82. Safety measures maintained by keeping the bed locked in lowest position, 2 side rails up, personal items and call light within reach. Wheelchair at bedside. Patient placed on bedside oxygen, weighed by bed scale and encouraged to call if they need something. All questions and concerns addressed, patient verbalized understanding. Addendum: 09/25/20 at 0400 by ÓSCAR BALLESTEROS RN RN Received patient on Heparin drip at 800units/hr; 8mL/hr
[2020-09-24 19:18] VITALS: BP 134/60
--- NOTE | 2020-09-24 19:18 | NUR ---
Respiratory note: PT CURRENTLY ON RA. NO RESP DISTRESS NOTED. SPO2 95%, HR 86, RR 17, BS CLEAR/DIMINISHED T/O. PRN TX NOT INDICATED AT THIS TIME.
[2020-09-24 20:03] VITALS: BP 154/85
[2020-09-24] MEDS ORDERED: PRAV20TA3 PO (20:09)
[2020-09-24] MEDS ORDERED: HYDR12.55 PO (20:09)
[2020-09-24] MEDS: FAMOTIDINE 20 MG TAB PO SCH (22:04)
[2020-09-24] MEDS: ATORVASTATIN 20 MG TAB PO SCH (22:04)
[2020-09-25] VITALS (11 sets, daily range): BP systolic 86–143; BP diastolic 35–71
[2020-09-25 02:04] LABS: Basophils # (auto) 0.1 10 ^3/uL (0-0.2); Basophils % (auto) 1.3 % (0.0-2.0); Eosinophils # (auto) 0.1 10 ^3/uL (0-0.8); Eosinophils % (auto) 1.7 % (0.0-7.0); Hematocrit 39.8 % (36.0-46.0); Hemoglobin 13.3 g/dL (12.2-16.2); Lymphocytes # (auto) 1.7 10 ^3/uL (0.4-5.4); Lymphocytes % (auto) 27.7 % (10.0-50.0); Mean Corpuscular Hemoglobin 30.5 pg (28.0-32.0); Mean Corpuscular Hgb Conc. 33.3 g/dL (32.0-36.0); Mean Corpuscular Volume 91.4 fL (80.0-100.0); Monocytes # (auto) 0.7 10 ^3/uL (0-1.3); Neutrophils # (auto) 3.6 10 ^3/uL (1.6-8.6); Neutrophils % (auto) 57.3 % (37.0-80.0); Nucleated Red Blood Cells % 0.1 %; Platelet Count (auto) 161 10^3/uL (140-450); Red Blood Cells 4.35 10^6/uL (4.0-5.20); White Blood Cell 6.2 10^3/uL (4.4-10.8)
[2020-09-25 02:25] LABS: BUN/Creatinine Ratio 40.4; Calcium 8.4 mg/dL (8.5-10.1); Potassium 3.4 mmol/L (3.5-5.1)
[2020-09-25 02:37] LABS: INR 1.24 (0.9-1.15)
[2020-09-25 02:39] LABS: Partial Thromboplastin Time > 139.0 sec (23.0-31.2)
--- NOTE | 2020-09-25 02:48 | NUR ---
Patient's PTT is > 139.0. Heparin infusion paused and will resume in one hour.
--- NOTE | 2020-09-25 03:37 | NUR ---
MRSA swab sent down to lab
--- NOTE | 2020-09-25 03:48 | NUR ---
Heparin infusion restarted at 5mL/hr
[2020-09-25] MEDS: SODIUM CHLORIDE 0.9% 1,000 ML IV SCH (06:20)
--- NOTE | 2020-09-25 08:30 | NUR ---
Respiratory note: PT IS AWAKE, AND ALERT. NO RESPIRATORY DISTRESS NOTED. SPO2 100% ON RA, HR 69, RR 18, BS CLEAR BILATERALLY. PRN MEDNEB TX NOT INDICATED AT THIS TIME. PT INFORMED TO PUSH CALL BUTTON IF INCREASED WOB, SOB, OR WHEEZING OCCURS. WILL CONTINUE TO MONITOR PT.
--- NOTE | 2020-09-25 08:36 | NUR ---
OPENING SHIFT NOTE: PATIENT RESTING IN BED, AWAKE A/OX4. RESPIRATIONS EVEN AND UNLABORED. UPDATED ON PLAN OF CARE, CONCERNS ADDRESSED. PERSONAL WHEELCHAIR AT BEDSIDE, COMMODE WITHIN REACH, FALL PRECAUTIONS IN PLACE. FELICIANO HUNG BELOW BLADDER FREE OF KINKS. CALL LIGHT WITHIN REACH, WILL CONTINUE TO MONITOR.
--- NOTE | 2020-09-25 09:25 | NUR ---
BLOOD THINNERS: CALLED CLOTH DYEING RANGE TENDER, NOTIFIED ALLA DELA CRUZ THAT PATIENT IS ON HEPARIN GTT, SHE ADVISED TO CONTINUE WELL OK TO GIVE OTHER SCHEDULED MEDS, PLAVIX, ASPIRIN, AND ENALAPRIL PER CLOTH DYEING RANGE TENDER PROTOCOL.
[2020-09-25] MEDS: ASPirin 81 mg TAB PO SCH (09:51)
[2020-09-25] MEDS: CLOPIDOGREL BISULFATE 75 MG TAB PO SCH (09:52)
[2020-09-25] MEDS: FAMOTIDINE 20 MG TAB PO SCH (09:52)
[2020-09-25] MEDS: traMADol HCL 50 MG TAB PO PRN (09:52)
[2020-09-25] MEDS: ENALAPRIL MALEATE 10 MG TAB PO SCH (09:52)
[2020-09-25] MEDS: NITROGLYCERIN 0.2MG/HR TOPICAL PATCH TD SCH (09:52)
--- NOTE | 2020-09-25 09:55 | NUR ---
SOCIAL SERVICE: PATIENT MADE THIS RN AWARE SHE HAD [facility] A FEW YEARS AGO WHEN LEARNING HOW TO DEAL WITH RECENT AMPUTATION, BUT THERE IS NO NEED NOW, AND SHE CAN BE SELF SUFFICIENT GOING HOME.
--- NOTE | 2020-09-25 11:37 | NUR ---
APTT: 72.6 CALLED FROM LAB. HEPARIN TITRATED PER PROTOCOL. 300U/HR
--- NOTE | 2020-09-25 13:23 | NUR ---
PATIENT TAKEN DOWN TO CONSERVATION WORKER.
--- NOTE | 2020-09-25 14:19 | NUR ---
assessment Patient is a 80 year old female who is alert and oriented. Patients cognitive abilities are intact. Prior to admission patient lived home with her Maurice and functioned with his assistance. Per patient she will return home to her prior living arrangements post discharge and Maurice will transport her home. Patient has a wheelchair, shower chair, and prosthetic leg for home use. Patients PCP is Dr Dang. Patient has a left AKA. Patient has been admitted for right foot pain. Patient will have a debridement. Patient may need home health for IV ABX on discharge. Patient has good family support. I will continue to monitor and follow up as appropriate for any post discharge needs. I informed patient she has a right to speak to a social security specialist regarding all care. I informed patient she has a right to participate in any and all discharge planning. Patient has a POA and advanced directive. Patient verbalized understanding and agreed to discharge plan. Addendum: 09/25/20 at 1424 by Haylee REESE Amended: Links added.
[2020-09-25] MEDS ORDERED: IODIXANOL 320MG/ML 100ML BTL IV ONE (16:07)
[2020-09-25] MEDS ORDERED: ANGIOMAX 250 MG VIAL IV ONE (16:13)
[2020-09-25] MEDS ORDERED: fentaNYL CITRATE 100 MCG/2 ML VL ONE (16:13)
[2020-09-25] MEDS ORDERED: SODIUM CHL 0.9% 50 ML ONE (16:14)
[2020-09-25] MEDS ORDERED: MIDAZOLAM HCL 1MG/1ML-2 ML VIAL ONE (16:14)
[2020-09-25] MEDS ORDERED: diphenhdrAMINE HCL 50 MG/1 ML VL ONE (16:27)
--- NOTE | 2020-09-25 17:38 | NUR ---
Pt. received in Able Bodied Watchman Post-Op lying flat, awake and oriented to person, place and event. Respirations even and unlabored. LEFT groin with arterial sheath in place; dressing is CDI. Pt. instructed re: importance of but keeping LEFT leg straight; verbalized understanding and is compliant. RT pedal pulses absent @ DP and Doppler audible @ PT. IVs x 2 intact to RIGHT forearm with NS infusing @ TKO into proximal forearm IV and NS lock on RIGHT distal forearm near wrist; both sites benign. Pt. instructed re: procedure outcome and plan of care; verbalized understanding and is compliant.
--- NOTE | 2020-09-25 17:57 | NUR ---
LEFT groin arterial sheath pulled by Marilyn Fitzpatrick RN per aseptic technique. Manual hold pressure applied; pt. tolerating well.
[2020-09-25] MEDS ORDERED: ONDANSETRON HCL 4 MG/2 ML VIAL IV PRN (18:00)
--- NOTE | 2020-09-25 18:15 | NUR ---
Hemostasis achieved at LEFT groin. Gauze pressure dressing and Tegaderm applied by Marilyn Fitzpatrick RN. Pt. states feels, "okay now." NAD noted.
--- NOTE | 2020-09-25 18:22 | NUR ---
LEFT groin soft with dressing CDI and no signs of bleeding or hematoma. Pt. stable for transfer back to room, SBAR report given to JOSE DE JESUS Montelongo.
--- NOTE | 2020-09-25 18:35 | NUR ---
Transferred back to room via bed in stable condition by Marilyn Fitzpatrick RN and Winter Palomino RN. Pt. endorsed to JOSE DE JESUS Montelongo.
--- NOTE | 2020-09-25 18:45 | NUR ---
PATIENT BACK IN ROOM FROM MUD MIXER OPERATOR. FELICIANO EMPTIED, [address] OUT. PATIENT GROGGY, BUT A/OX4.
--- NOTE | 2020-09-25 19:08 | NUR ---
BP: THIS RN CALLED ELEMENTARY SCHOOL PRINCIPAL, NOTIFIED OF BP 76/42MMH, 78/41MMHG, AND 79/45MMHG. MD PACE AWARE, START FLUID BOLUS. LEFT GROIN CDI. PATIENT MENTAL STATUS A/OX4, O2 SAT 96% TEMP 97.7 RR 14 HR 82. WILL ENDORSE CARE TO ADAN DELA CRUZ.
--- NOTE | 2020-09-25 19:10 | NUR ---
PT ASSESSED, NO SOB NOTED. [place] TX NOT INDICATED.
--- NOTE | 2020-09-25 19:10 | NUR ---
CARE ENDORSED TO NOC RN.
--- NOTE | 2020-09-25 19:23 | NUR ---
Post Cath vitals recorded, BP 86/47, HR 89, O2 96%, RR15, T. 97.8 Posterior Tibial pulse found with Doppler.
--- NOTE | 2020-09-25 19:38 | NUR ---
Post Cath vitals recorded, BP 95/49, HR 87, O2 97%, RR16, T 97.8 Posterior Tibial pulse found with Doppler.
--- NOTE | 2020-09-25 19:53 | NUR ---
Post Cath vitals recorded, BP 95/35, HR 90, O2 93%, RR16, T. 97.5 Posterior Tibial pulse found with Doppler.
--- NOTE | 2020-09-25 20:08 | NUR ---
Post Cath vitals recorded, BP 104/62, HR 92, O2 98%, RR15, T. 97.5 Posterior Tibial pulse found with Doppler.
--- NOTE | 2020-09-25 21:08 | NUR ---
Post Cath vitals recorded, BP 104/62, HR 92, O2 98%, RR15, T. 97.5 Posterior Tibial pulse found with Doppler.
--- NOTE | 2020-09-25 22:08 | NUR ---
Post Cath vitals recorded, BP 119/63, HR 97, O2 98%, RR17, T. 97.8 Posterior Tibial pulse found with Doppler.
[2020-09-25] MEDS: SODIUM CHLOR 0.9% PF (SALINE LOCK) 10ML VIAL/SYR IV SCH (22:31)
[2020-09-25] MEDS: ATORVASTATIN 20 MG TAB PO SCH (22:32)
--- NOTE | 2020-09-25 23:08 | NUR ---
Post Cath vitals recorded, BP 111/53, HR 79, O2 97%, RR16, T. 97.8 Posterior Tibial pulse found with Doppler.
[2020-09-26] MEDS: SODIUM CHLORIDE 0.9% 1,000 ML IV SCH ×2 (00:27→09:00)
[2020-09-26] MEDS: traMADol HCL 50 MG TAB PO PRN (01:02)
[2020-09-26 05:00] VITALS: BP 97/52
[2020-09-26] MEDS: SODIUM CHLOR 0.9% PF (SALINE LOCK) 10ML VIAL/SYR IV SCH ×2 (06:33→14:00)
[2020-09-26 09:00] VITALS: BP 107/44
--- NOTE | 2020-09-26 09:33 | NUR ---
Dr. Anderson at bed side
[2020-09-26] MEDS: FAMOTIDINE 20 MG TAB PO SCH (10:00)
[2020-09-26] MEDS: ENALAPRIL MALEATE 10 MG TAB PO SCH (10:00)
[2020-09-26] MEDS: NITROGLYCERIN 0.2MG/HR TOPICAL PATCH TD SCH (10:00)
[2020-09-26] MEDS: CLOPIDOGREL BISULFATE 75 MG TAB PO SCH (10:00)
[2020-09-26] MEDS: ASPirin 81 mg TAB PO SCH (10:00)
--- NOTE | 2020-09-26 10:10 | NUR ---
Respiratory note: Respiratory note: PT ASSESSED FOR PRN MED NEB. PT RESTING COMFORTABLY. PT FOUND ON ROOM AIR SP02 100%. RR 18. PT B/S ARE CLEAR. NO TX INDICATED AT THIS TIME. WILL CONT. TO MONITOR.
--- NOTE | 2020-09-26 10:12 | NUR ---
AM MEDICATIONS REFUSED Patient refused am medications, patient states "I have an appt with my doctor October 01 and he will tell me what I need to take" Education on reasons for administration and risks of refusal explained to patient. Patient continues to refuse meds. Will continue to monitor.
[2020-09-26 10:40] VITALS: BP 107/44
[2020-09-26 13:00] VITALS: BP 95/63
--- NOTE | 2020-09-26 14:30 | NUR ---
Discharge instructions given as ordered. Encourage to follow up with PMD as instructed. All questions and concerns addressed. Patient verbalized understanding. Medication reconciliation form completed and copy given to patient. IV removed with catheter intact, pressure dressing applied, parrish catheter removed. Telemetry unit returned to ICU. Patient taken to vehicle via wheelchair with all personal belongings, accompanied by staff. No distress noted at time of departure.
== END 2020-09-26 14:30 | disposition home or self-care (01) | DRG 254 ==
LOC: ER 13:09 → TELE 13:10 → TELE-WESTW 19:58
PROVIDERS: ADMIT Internal Medicine; ATTEND Family Medicine
PROC: 047K3ZZ Dilation of Right Femoral Artery, Percutaneous Approach (ICD-10-PCS; principal; 2020-09-25)
DX: I77.1 Stricture of artery (principal); I99.8 Other disorder of circulatory system; I70.292 Other atherosclerosis of native arteries of extremities, left leg; E78.00 Pure hypercholesterolemia, unspecified; E78.5 Hyperlipidemia, unspecified; I10 Essential (primary) hypertension; J44.9 Chronic obstructive pulmonary disease, unspecified; Z82.49 Family history of ischemic heart disease and other diseases of the circulatory system; Z82.5 Family history of asthma and other chronic lower respiratory diseases; Z89.611 Acquired absence of right leg above knee; Z89.612 Acquired absence of left leg above knee; Z95.820 Peripheral vascular angioplasty status with implants and grafts; I70.0 Atherosclerosis of aorta
CPT/HCPCS: 36415; 71045; 80048; 80053; 82550; 83735; 84484; 85025; 85610; 85730; 87081; 93005; 93926; 93971; 96361; 96365; 99152; 99153; G0378; J2250; Q9967

== ENCOUNTER → 2020-10-03 | Outpatient (CLI) | payer OTHER ==
[~2020-10-03] MED LIST changes: +ASCO500T11 PO; -ATOR20TA50 PO; +B-CO1TAB8 PO; +CHOL20007 PO; +COEN400C8 PO; +DORZ1SOL6 OP; +HYDR-531 PO; +HYDR12.55 PO; +MAGN400T40 PO; +MULT-1058 PO; +PRAV20TA3 PO
== END | disposition home or self-care (01) ==
LOC: LAB 08:11
PROVIDERS: ATTEND Internal Medicine
DX: Z01.812 Encounter for preprocedural laboratory examination (principal)
CPT/HCPCS: 36415; 82565; 84520

== ENCOUNTER 2020-10-05 16:10 | Inpatient (IN) | payer OTHER ==
[~2020-10-05] VITALS: Ht 157.5 cm; Wt 47.5 kg
[~2020-10-05 16:10] MED LIST changes: -ASCO500T11 PO; -B-CO1TAB8 PO; -CHOL20007 PO; -COEN400C8 PO; -DORZ1SOL6 OP; -HYDR-531 PO; -IOHEXOL 350 MG/ML 100ML IJ ONE; -MAGN400T40 PO; -MULT-1058 PO
[2020-10-05] MEDS ORDERED: POTASSIUM CHL 20 Meq TABLET PO ONE (18:15)
[2020-10-05] MEDS ORDERED: MORPHINE SULF INJ 2 MG/ML SYRINGE 1ML IV PRN ×3 (18:15→21:15)
[2020-10-05] MEDS ORDERED: NITROGLYCERIN 0.4 MG SL TAB SL PRN ×2 (18:15→21:15)
[2020-10-05] MEDS ORDERED: DORZ1SOL6 OP (18:16)
[2020-10-05] MEDS ORDERED: HYDR-531 PO (18:17)
[2020-10-05] MEDS ORDERED: COEN400C8 PO (18:19)
[2020-10-05] MEDS ORDERED: CHOL20007 PO (18:19)
[2020-10-05] MEDS ORDERED: ASCO500T11 PO (18:19)
[2020-10-05] MEDS ORDERED: B-CO1TAB8 PO (18:19)
[2020-10-05] MEDS ORDERED: MAGN400T40 PO (18:19)
[2020-10-05] MEDS ORDERED: MULT-1058 PO (18:19)
[2020-10-05] MEDS ORDERED: HYDR12.55 PO ×2 (18:21→18:22)
[2020-10-05 18:42] LABS: Basophils # (auto) 0.1 10 ^3/uL (0-0.2); Basophils % (auto) 1.5 % (0.0-2.0); Eosinophils # (auto) 0.1 10 ^3/uL (0-0.8); Eosinophils % (auto) 1.5 % (0.0-7.0); Hematocrit 31.8 % (36.0-46.0); Hemoglobin 10.3 g/dL (12.2-16.2); Lymphocytes # (auto) 1.4 10 ^3/uL (0.4-5.4); Mean Corpuscular Hemoglobin 30.4 pg (28.0-32.0); Mean Corpuscular Hgb Conc. 32.5 g/dL (32.0-36.0); Mean Corpuscular Volume 93.5 fL (80.0-100.0); Monocytes # (auto) 0.8 10 ^3/uL (0-1.3); Monocytes % (auto) 9.8 % (0.0-12.0); Neutrophils # (auto) 5.8 10 ^3/uL (1.6-8.6); Neutrophils % (auto) 70.2 % (37.0-80.0); Nucleated Red Blood Cells % 0.1 %; Platelet Count (auto) 400 10^3/uL (140-450); Red Cell Distribution Width 14.2 % (11.8-14.3); White Blood Cell 8.3 10^3/uL (4.4-10.8)
[2020-10-05 18:59] LABS: Calcium 9.2 mg/dL (8.5-10.1); Potassium 3.9 mmol/L (3.5-5.1)
[2020-10-05 19:07] LABS: Albumin 3.2 g/dL (3.4-5.0); BUN/Creatinine Ratio 38.9; Bilirubin, Total 0.8 mg/dL (0.2-1.0); Total Protein 6.8 g/dL (6.4-8.2)
[2020-10-05 19:24] LABS: INR 1.18 (0.9-1.15); Partial Thromboplastin Time 26.8 sec (23.0-31.2)
[2020-10-05 20:50] VITALS: BP 151/70
--- NOTE | 2020-10-05 20:50 | NUR ---
Telemetry admit from ER [facility] admitted to Telemetry unit. Patient oriented to CATHY KLEIN, primary RN, unit, room, bed, and unit policies regarding patient care and visiting hours. Patient now on continuous telemetry monitoring, tele box #31 and telemetry reading on arrival to unit is SR. Patient weighed by bedscale and encouraged to call if they need something. All questions and concerns addressed, patient verbalized understanding.
[2020-10-05] MEDS ORDERED: DOCUSATE SOD 100 MG CAP PO PRN (21:15)
[2020-10-05] MEDS ORDERED: hydrALAZINE HCL 25 MG TAB PO PRN (21:15)
[2020-10-05] MEDS ORDERED: LORazepam 0.5 MG TAB PO PRN (21:15)
[2020-10-05] MEDS ORDERED: ONDANSETRON HCL 4 MG/2 ML VIAL IV PRN (21:15)
[2020-10-05] MEDS ORDERED: ALUM & MAG HYDROX-SIMETH LIQ(MAALOX) 30 ML PO PRN (21:15)
[2020-10-05] MEDS ORDERED: METOPROLOL SUCCINATE XL 50 MG TAB PO ONE (21:15)
[2020-10-05] MEDS ORDERED: HYDROcodone-ACET 5/325MG TAB PO PRN (21:15)
[2020-10-05] MEDS ORDERED: ACETAMINOPHEN 325 MG TAB PO PRN (21:15)
[2020-10-05] MEDS: LATANOPROST 0.005 % OPTH(EYE) SOL 2.5ML EACHEYE SCH ×2 (22:00→23:06)
[2020-10-05] MEDS: DORZOLAMIDE HCL 2% OPTH(EYE) SOL 10ML EACHEYE SCH ×2 (22:00→23:06)
[2020-10-05] MEDS: SODIUM CHLORIDE 0.9% 1,000 ML IV SCH (23:03)
[2020-10-05] MEDS: PRAVASTATIN SODIUM 20 MG TAB PO SCH (23:06)
[2020-10-05] MEDS: MAGNESIUM OXIDE 400 MG TAB PO SCH (23:06)
[2020-10-06 00:48] VITALS: BP 151/70
[2020-10-06 01:02] LABS: Cholesterol 159 mg/dL (< 200); Triglycerides 90 mg/dL (< 150)
[2020-10-06 01:05] LABS: HDL Cholesterol 65 mg/dL (40-59); LDL Cholesterol 94 mg/dL (< 100)
[2020-10-06 05:00] VITALS: BP 118/57
[2020-10-06 07:17] LABS: Basophils # (auto) 0.1 10 ^3/uL (0-0.2); Eosinophils # (auto) 0.1 10 ^3/uL (0-0.8); Eosinophils % (auto) 1.7 % (0.0-7.0); Hematocrit 29.1 % (36.0-46.0); Hemoglobin 9.7 g/dL (12.2-16.2); Lymphocytes # (auto) 1.1 10 ^3/uL (0.4-5.4); Lymphocytes % (auto) 18.2 % (10.0-50.0); Mean Corpuscular Hemoglobin 31.2 pg (28.0-32.0); Mean Corpuscular Hgb Conc. 33.2 g/dL (32.0-36.0); Mean Corpuscular Volume 93.9 fL (80.0-100.0); Monocytes # (auto) 0.8 10 ^3/uL (0-1.3); Monocytes % (auto) 12.8 % (0.0-12.0); Neutrophils # (auto) 4.2 10 ^3/uL (1.6-8.6); Neutrophils % (auto) 66.3 % (37.0-80.0); Nucleated Red Blood Cells % 0.1 %; Platelet Count (auto) 334 10^3/uL (140-450); Red Cell Distribution Width 13.9 % (11.8-14.3); White Blood Cell 6.3 10^3/uL (4.4-10.8)
[2020-10-06 07:27] LABS: INR 1.13 (0.9-1.15); Partial Thromboplastin Time 25.9 sec (23.0-31.2)
--- NOTE | 2020-10-06 07:35 | NUR ---
Opening Note Received report from recreation facility attendant RN. Patient is awake, alert and oriented x4. No signs or symptoms of distress noted at this time. Patient is on room air, respirations even and unlabored. Reviewed plan of care with patient, patient verbalized understanding. Patient is NPO for schedule procedure. Bed in low and locked position, call light within reach. Will continue to monitor Q1 hour and PRN.
[2020-10-06 07:46] LABS: Albumin 2.9 g/dL (3.4-5.0); BUN/Creatinine Ratio 29.4; Bilirubin, Total 0.8 mg/dL (0.2-1.0); Calcium 8.9 mg/dL (8.5-10.1); Magnesium 2.7 mg/dL (1.6-2.6); Phosphorus 3.2 mg/dL (2.5-4.90); Total Protein 6.3 g/dL (6.4-8.2)
--- NOTE | 2020-10-06 08:15 | NUR ---
Dr. Lundberg at bedside MD at bedside discussing plan of care with patient and this RN. No new orders. Will continue to monitor Q1 hour and PRN.
[2020-10-06 08:29] VITALS: BP 118/59
[2020-10-06] MEDS: DORZOLAMIDE HCL 2% OPTH(EYE) SOL 10ML EACHEYE SCH ×3 (09:55→21:42)
[2020-10-06] MEDS: CHOLECALCIFEROL (VITD3) 2,000 UNIT CAP PO SCH (09:57)
[2020-10-06] MEDS: MULTIPLE VITAMINS W/ MINERALS TAB PO SCH (09:57)
[2020-10-06] MEDS: B-COMPLEX W/ C & FOLIC ACID(NEPHROVITE TAB) PO SCH (09:57)
[2020-10-06] MEDS: ASCORBIC ACID 500 MG TAB PO SCH (09:57)
[2020-10-06] MEDS: MAGNESIUM OXIDE 400 MG TAB PO SCH ×2 (10:08→21:43)
[2020-10-06] MEDS: METOPROLOL SUCCINATE XL 50 MG TAB PO SCH (10:09)
--- NOTE | 2020-10-06 11:37 | NUR ---
Patient taken down to equipment operator/laborer
[2020-10-06] MEDS ORDERED: THROMBIN (BOVINE) 5000 UNIT SOL VIAL ONE (12:38)
[2020-10-06] MEDS ORDERED: THROMBIN (BOVINE) 5000 UNIT SOL VIAL TP ONE (12:45)
[2020-10-06] MEDS ORDERED: LIDOCAINE 2%HCL (LOCAL ANESTH.) INJ 20ML MDV ONE (13:09)
[2020-10-06] MEDS ORDERED: fentaNYL CITRATE 100 MCG/2 ML VL ONE (13:12)
[2020-10-06] MEDS ORDERED: MIDAZOLAM HCL 1MG/1ML-2 ML VIAL ONE (13:12)
[2020-10-06] MEDS ORDERED: fentaNYL CITRATE 100 MCG/2 ML VL IV ONE (13:30)
[2020-10-06] MEDS ORDERED: MIDAZOLAM HCL 1MG/1ML-2 ML VIAL IM ONE (13:30)
[2020-10-06] MEDS: SODIUM CHLORIDE 0.9% 1,000 ML IV SCH (13:55)
--- NOTE | 2020-10-06 14:35 | NUR ---
Patient back from labeling associate Patient is s/p pseudoaneurysm closure. No swelling or bleeding noted to left groin. Patient is awake, alert and oriented x4. Blood pressure 111/62, heart rate 100, respirations 12, oxygen saturation 97% on 2L NC. Bed alarm on for safety, bed in low and locked position, call light within reach. Will continue to monitor Q1 hour and PRN.
[2020-10-06 17:09] VITALS: BP 107/52
--- NOTE | 2020-10-06 19:10 | NUR ---
Closing Note Report given to message broker developer RN. No signs or symptoms of distress noted at this time.
--- NOTE | 2020-10-06 19:28 | NUR ---
Opening Shift Note Assumed care of patient, awake and alert x 4. No S/S of distress/SOB. Bed is in lowest position and locked. Call light within reach. Board updated. Tele box number matches monitor and leads are in correct placement. Instructed on POC and to call for assist PRN, will continue to monitor for changes Q1hr and PRN.
[2020-10-06] MEDS: LATANOPROST 0.005 % OPTH(EYE) SOL 2.5ML EACHEYE SCH (21:42)
[2020-10-06] MEDS: PRAVASTATIN SODIUM 20 MG TAB PO SCH (21:43)
[2020-10-06 22:00] VITALS: BP_SYST 87; BP_SYST 93; BP_DIAS 40; BP_DIAS 47
--- NOTE | 2020-10-06 22:00 | NUR ---
Reassessed BP after BREED TO WEAN PRODUCTION TECHNICIAN informed me of low BP. BP reassessment: 93/47 with MAP of 67. Will continue to reassess.
[2020-10-07] VITALS: BP 90/48
--- NOTE | 2020-10-07 | NUR ---
Second BP reassessment: 90/48 with MAP of 66. Will continue to assess.
[2020-10-07 05:00] VITALS: BP 100/60
[2020-10-07] MEDS: SODIUM CHLORIDE 0.9% 1,000 ML IV SCH (05:50)
[2020-10-07] MEDS: DORZOLAMIDE HCL 2% OPTH(EYE) SOL 10ML EACHEYE SCH (05:50)
[2020-10-07 06:03] LABS: Basophils # (auto) 0.1 10 ^3/uL (0-0.2); Basophils % (auto) 0.8 % (0.0-2.0); Eosinophils # (auto) 0.1 10 ^3/uL (0-0.8); Eosinophils % (auto) 1.1 % (0.0-7.0); Hematocrit 28.4 % (36.0-46.0); Hemoglobin 9.3 g/dL (12.2-16.2); Lymphocytes # (auto) 1.3 10 ^3/uL (0.4-5.4); Lymphocytes % (auto) 16.8 % (10.0-50.0); Mean Corpuscular Hemoglobin 30.9 pg (28.0-32.0); Mean Corpuscular Hgb Conc. 32.7 g/dL (32.0-36.0); Mean Corpuscular Volume 94.3 fL (80.0-100.0); Monocytes # (auto) 0.9 10 ^3/uL (0-1.3); Monocytes % (auto) 11.9 % (0.0-12.0); Neutrophils # (auto) 5.3 10 ^3/uL (1.6-8.6); Neutrophils % (auto) 69.4 % (37.0-80.0); Nucleated Red Blood Cells % 0.1 %; Platelet Count (auto) 296 10^3/uL (140-450); Red Blood Cells 3.01 10^6/uL (4.0-5.20); Red Cell Distribution Width 14.6 % (11.8-14.3); White Blood Cell 7.6 10^3/uL (4.4-10.8)
[2020-10-07 06:33] LABS: BUN/Creatinine Ratio 46.4; Calcium 8.6 mg/dL (8.5-10.1); Magnesium 2.8 mg/dL (1.6-2.6)
--- NOTE | 2020-10-07 07:25 | NUR ---
Opening Note Received report from awake overnight counselor RN. Patient is awake, alert and oriented x4. No signs or symptoms of distress noted at this time. Patient is on room air, respirations even and unlabored. Patient denies pain at this time. Reviewed plan of care with patient, patient verbalized understanding. Bed in low and locked position, call light within reach. Will continue to monitor Q1 hour and PRN.
[2020-10-07 08:50] VITALS: BP 125/66
[2020-10-07] MEDS: METOPROLOL SUCCINATE XL 50 MG TAB PO SCH (09:57)
[2020-10-07] MEDS: MAGNESIUM OXIDE 400 MG TAB PO SCH (09:57)
[2020-10-07] MEDS: ASCORBIC ACID 500 MG TAB PO SCH (09:57)
[2020-10-07] MEDS: B-COMPLEX W/ C & FOLIC ACID(NEPHROVITE TAB) PO SCH (09:57)
[2020-10-07] MEDS: MULTIPLE VITAMINS W/ MINERALS TAB PO SCH (09:58)
[2020-10-07] MEDS: CHOLECALCIFEROL (VITD3) 2,000 UNIT CAP PO SCH (09:58)
--- NOTE | 2020-10-07 10:57 | NUR ---
Dr. Lundberg at bedside MD at bedside discussing plan of care with patient and this RN. Patient is to discharge home later today, will continue to monitor Q1 hour and PRN.
[2020-10-07 12:25] VITALS: BP 118/68
--- NOTE | 2020-10-07 13:33 | NUR ---
DISCHARGE Discharge instructions given as ordered. Encourage to follow up with PMD as instructed. All questions and concerns addressed. Patient verbalized understanding. Medication reconciliation form completed and copy given to patient. Home medications held in Pharmacy returned to patient. IV removed with catheter intact, pressure dressing applied. Telemetry unit removed and sent back to ICU. Patient taken to vehicle via wheelchair with all personal belongings, accompanied by staff member. No signs or symptoms of distress noted at this time.
== END 2020-10-07 13:30 | disposition home or self-care (01) | DRG 301 ==
LOC: ER 16:10 → TELE 16:11 → TELE-CENTR 20:51
PROVIDERS: ADMIT Hospitalist; ATTEND Internal Medicine
PROC: 3E053GC Introduction of Other Therapeutic Substance into Peripheral Artery, Percutaneous Approach (ICD-10-PCS; principal; 2020-10-06)
DX: T81.718A Complication of other artery following a procedure, not elsewhere classified, initial encounter (principal); Y92.89 Other specified places as the place of occurrence of the external cause; I72.4 Aneurysm of artery of lower extremity; I73.9 Peripheral vascular disease, unspecified; I25.10 Atherosclerotic heart disease of native coronary artery without angina pectoris; J44.9 Chronic obstructive pulmonary disease, unspecified; D50.0 Iron deficiency anemia secondary to blood loss (chronic); H40.9 Unspecified glaucoma; E78.5 Hyperlipidemia, unspecified; F03.90 Unspecified dementia, unspecified severity, without behavioral disturbance, psychotic disturbance, mood disturbance, and anxiety; I10 Essential (primary) hypertension; Y83.8 Other surgical procedures as the cause of abnormal reaction of the patient, or of later complication, without mention of misadventure at the time of the procedure; Z79.01 Long term (current) use of anticoagulants; Z79.899 Other long term (current) drug therapy; Z89.612 Acquired absence of left leg above knee; Z98.61 Coronary angioplasty status; Z82.49 Family history of ischemic heart disease and other diseases of the circulatory system; Z82.5 Family history of asthma and other chronic lower respiratory diseases; Z87.891 Personal history of nicotine dependence; Z98.51 Tubal ligation status
CPT/HCPCS: 36415; 71045; 76937; 80048; 80053; 80061; 83036; 83735; 84100; 84484; 85025; 85610; 85730; 86850; 86900; 86901; 87040; 93005; 96361; 96374; 99152; G0378; J2250

== ENCOUNTER → 2020-10-05 | Outpatient (CLI) | payer OTHER ==
[~2020-10-05] MED LIST changes: +IOHEXOL 350 MG/ML 100ML IJ ONE
== END | disposition home or self-care (01) ==
LOC: CT 08:58
PROVIDERS: ATTEND Internal Medicine
DX: I70.0 Atherosclerosis of aorta (principal); I72.4 Aneurysm of artery of lower extremity; I77.1 Stricture of artery; I70.8 Atherosclerosis of other arteries; J43.2 Centrilobular emphysema; I73.9 Peripheral vascular disease, unspecified; R10.12 Left upper quadrant pain; Z95.5 Presence of coronary angioplasty implant and graft; Z98.82 Breast implant status; Z98.890 Other specified postprocedural states
CPT/HCPCS: 74177; Q9967

== ENCOUNTER → 2020-12-29 | Outpatient (CLI) | payer OTHER ==
[~2020-12-29] MED LIST changes: +ASCO500T11 PO; +B-CO1TAB8 PO; +CHOL20007 PO; +COEN400C8 PO; +DORZ1SOL6 OP; +HYDR-531 PO; +MAGN400T40 PO; +MULT-1058 PO; -TIMO1SOL6 OP
== END | disposition home or self-care (01) ==
LOC: XY 10:28
PROVIDERS: ATTEND Internal Medicine
DX: I70.201 Unspecified atherosclerosis of native arteries of extremities, right leg (principal)
CPT/HCPCS: 93925; 93926

== ENCOUNTER → 2020-12-29 | Outpatient (CLI) | payer OTHER ==
[2020-12-29 10:28] LABS: Basophils # (auto) 0.1 10 ^3/uL (0-0.2); Basophils % (auto) 1.4 % (0.0-2.0); Eosinophils # (auto) 0.2 10 ^3/uL (0-0.8); Hematocrit 43.7 % (36.0-46.0); Hemoglobin 14.8 g/dL (12.2-16.2); Lymphocytes # (auto) 1.3 10 ^3/uL (0.4-5.4); Lymphocytes % (auto) 18.3 % (10.0-50.0); Mean Corpuscular Hemoglobin 31.2 pg (28.0-32.0); Mean Corpuscular Hgb Conc. 33.9 g/dL (32.0-36.0); Monocytes # (auto) 0.6 10 ^3/uL (0-1.3); Monocytes % (auto) 8.4 % (0.0-12.0); Neutrophils # (auto) 4.9 10 ^3/uL (1.6-8.6); Neutrophils % (auto) 68.9 % (37.0-80.0); Nucleated Red Blood Cells % 0.1 %; Platelet Count (auto) 171 10^3/uL (140-450); Red Blood Cells 4.75 10^6/uL (4.0-5.20); Red Cell Distribution Width 13.6 % (11.8-14.3); White Blood Cell 7.1 10^3/uL (4.4-10.8)
[2020-12-29 11:23] LABS: Potassium 4.2 mmol/L (3.5-5.1)
[2020-12-29 11:41] LABS: Albumin 3.9 g/dL (3.4-5.0); BUN/Creatinine Ratio 38.6; Bilirubin, Total 0.4 mg/dL (0.2-1.0); Calcium 8.9 mg/dL (8.5-10.1); Total Protein 7.5 g/dL (6.4-8.2)
== END | disposition home or self-care (01) ==
LOC: LAB 10:02
PROVIDERS: ATTEND Internal Medicine
DX: I73.9 Peripheral vascular disease, unspecified (principal); D64.9 Anemia, unspecified; E78.5 Hyperlipidemia, unspecified
CPT/HCPCS: 36415; 80053; 83540; 85025

== ENCOUNTER 2021-01-13 11:33 | Inpatient (IN) | payer OTHER ==
[~2021-01-13] VITALS: Ht 157.5 cm; Wt 44.8 kg
[2021-01-13 12:10] LABS: Basophils # (auto) 0.1 10 ^3/uL (0-0.2); Basophils % (auto) 0.9 % (0.0-2.0); Eosinophils # (auto) 0.2 10 ^3/uL (0-0.8); Eosinophils % (auto) 3.1 % (0.0-7.0); Hematocrit 46.3 % (36.0-46.0); Lymphocytes # (auto) 1.2 10 ^3/uL (0.4-5.4); Lymphocytes % (auto) 18.1 % (10.0-50.0); Mean Corpuscular Hemoglobin 31.6 pg (28.0-32.0); Mean Corpuscular Hgb Conc. 34.5 g/dL (32.0-36.0); Mean Corpuscular Volume 91.4 fL (80.0-100.0); Monocytes # (auto) 0.5 10 ^3/uL (0-1.3); Monocytes % (auto) 7.2 % (0.0-12.0); Neutrophils # (auto) 4.6 10 ^3/uL (1.6-8.6); Neutrophils % (auto) 70.7 % (37.0-80.0); Platelet Count (auto) 150 10^3/uL (140-450); Red Blood Cells 5.07 10^6/uL (4.0-5.20); Red Cell Distribution Width 13.4 % (11.8-14.3); White Blood Cell 6.5 10^3/uL (4.4-10.8)
[2021-01-13 12:27] LABS: INR 1.96 (0.9-1.15); Partial Thromboplastin Time 38.4 sec (23.0-31.2)
[2021-01-13 12:39] LABS: Albumin 4.1 g/dL (3.4-5.0); Calcium 9.1 mg/dL (8.5-10.1); Potassium 3.7 mmol/L (3.5-5.1)
[2021-01-13 12:43] LABS: BUN/Creatinine Ratio 29.3; Bilirubin, Total 0.6 mg/dL (0.2-1.0); Total Protein 7.9 g/dL (6.4-8.2)
[2021-01-13] MEDS ORDERED: IOHEXOL 350 MG/ML 100ML IJ ONE ×2 (12:47→17:28)
[2021-01-13] MEDS ORDERED: MORPHINE SULFATE 4 MG/ML SYR/VIAL IV ONE (13:15)
[2021-01-13] MEDS ORDERED: ONDANSETRON HCL 4 MG/2 ML VIAL IV ONE (13:15)
[2021-01-13] MEDS ORDERED: HYDROcodone-ACET 5/325MG TAB PO PRN (15:45)
[2021-01-13] MEDS ORDERED: hydrALAZINE HCL 20 MG/ML VL IV PRN (15:45)
[2021-01-13] MEDS ORDERED: MORPHINE SULF INJ 2 MG/ML SYRINGE 1ML IV PRN ×2 (15:45)
[2021-01-13] MEDS ORDERED: ONDANSETRON HCL 4 MG/2 ML VIAL IV PRN (15:45)
[2021-01-13] MEDS ORDERED: NITROGLYCERIN 0.4 MG SL TAB SL PRN (15:45)
[2021-01-13] MEDS ORDERED: ACETAMINOPHEN 500 MG TAB PO PRN (15:45)
[2021-01-13] MEDS ORDERED: LIDOCAINE 2%HCL (LOCAL ANESTH.) INJ 20ML MDV ONE (16:58)
[2021-01-13] MEDS ORDERED: ANGIOMAX 250 MG VIAL IV ONE ×2 (17:26→19:26)
[2021-01-13] MEDS ORDERED: fentaNYL CITRATE 100 MCG/2 ML VL ONE (17:27)
[2021-01-13] MEDS ORDERED: SODIUM CHL 0.9% 50 ML ONE ×2 (17:28→19:26)
[2021-01-13] MEDS ORDERED: MIDAZOLAM HCL 1MG/1ML-2 ML VIAL ONE (17:28)
[2021-01-13] MEDS ORDERED: EPTIFIBATIDE INJ (2MG/ML) 10ML VIAL IV ONE (19:15)
[2021-01-13] MEDS ORDERED: EPTIFIBATIDE DRIP(0.75MG/ML) 100 ML IV ONE (19:15)
[2021-01-13] MEDS ORDERED: HYDROmorphone HCL 2 MG/ML VL ONE (19:19)
[2021-01-13] MEDS ORDERED: ATORVASTATIN 20 MG TAB PO SCH (22:00)
[2021-01-13 22:45] VITALS: BP 151/75
[2021-01-14 05:17] LABS: Basophils # (auto) 0 10 ^3/uL (0-0.2); Basophils % (auto) 0.2 % (0.0-2.0); Eosinophils # (auto) 0 10 ^3/uL (0-0.8); Hematocrit 44.8 % (36.0-46.0); Lymphocytes # (auto) 0.4 10 ^3/uL (0.4-5.4); Lymphocytes % (auto) 3.1 % (10.0-50.0); Mean Corpuscular Hgb Conc. 33.5 g/dL (32.0-36.0); Mean Corpuscular Volume 92.6 fL (80.0-100.0); Monocytes # (auto) 0.7 10 ^3/uL (0-1.3); Neutrophils # (auto) 11.3 10 ^3/uL (1.6-8.6); Neutrophils % (auto) 90.7 % (37.0-80.0); Nucleated Red Blood Cells % 0.1 %; Platelet Count (auto) 137 10^3/uL (140-450); Red Blood Cells 4.84 10^6/uL (4.0-5.20); Red Cell Distribution Width 13.2 % (11.8-14.3); White Blood Cell 12.5 10^3/uL (4.4-10.8)
[2021-01-14 05:35] LABS: Albumin 3.9 g/dL (3.4-5.0)
[2021-01-14 05:39] VITALS: BP 131/59
[2021-01-14 05:39] LABS: BUN/Creatinine Ratio 29.4; Bilirubin, Total 0.8 mg/dL (0.2-1.0); Total Protein 7.2 g/dL (6.4-8.2)
[2021-01-14 09:00] VITALS: BP 82/48
[2021-01-14] MEDS ORDERED: CILOSTAZOL 100 MG TAB PO SCH (10:00)
[2021-01-14] MEDS ORDERED: CLOPIDOGREL BISULFATE 75 MG TAB PO SCH (10:00)
[2021-01-14] MEDS ORDERED: FAMOTIDINE 20 MG TAB PO SCH (10:00)
[2021-01-14 12:31] VITALS: BP 92/43
== END 2021-01-14 16:40 | disposition home or self-care (01) | DRG 271 ==
LOC: ER 11:33 → TELE 11:34 → TELE-CENTR 21:53
PROVIDERS: ADMIT Nurse Practitioner Acute Care; ATTEND Internal Medicine
PROC: 04CK3ZZ Extirpation of Matter from Right Femoral Artery, Percutaneous Approach (ICD-10-PCS; principal; 2021-01-13)
PROC: 047K3ZZ Dilation of Right Femoral Artery, Percutaneous Approach (ICD-10-PCS; 2021-01-13)
PROC: 047T34Z Dilation of Right Peroneal Artery with Drug-eluting Intraluminal Device, Percutaneous Approach (ICD-10-PCS; 2021-01-13)
PROC: 047M3DZ Dilation of Right Popliteal Artery with Intraluminal Device, Percutaneous Approach (ICD-10-PCS; 2021-01-13)
PROC: 04CT3ZZ Extirpation of Matter from Right Peroneal Artery, Percutaneous Approach (ICD-10-PCS; 2021-01-13)
PROC: 04CM3ZZ Extirpation of Matter from Right Popliteal Artery, Percutaneous Approach (ICD-10-PCS; 2021-01-13)
PROC: 3E053PZ Introduction of Platelet Inhibitor into Peripheral Artery, Percutaneous Approach (ICD-10-PCS; 2021-01-13)
PROC: B41F1ZZ Fluoroscopy of Right Lower Extremity Arteries using Low Osmolar Contrast (ICD-10-PCS; 2021-01-13)
DX: I70.221 Atherosclerosis of native arteries of extremities with rest pain, right leg (principal); R64 Cachexia; Z68.1 Body mass index [BMI] 19.9 or less, adult; J44.9 Chronic obstructive pulmonary disease, unspecified; E78.5 Hyperlipidemia, unspecified; I10 Essential (primary) hypertension; Z20.822 Contact with and (suspected) exposure to COVID-19; Z79.01 Long term (current) use of anticoagulants; Z89.612 Acquired absence of left leg above knee; Z79.899 Other long term (current) drug therapy; Z82.49 Family history of ischemic heart disease and other diseases of the circulatory system; Z82.5 Family history of asthma and other chronic lower respiratory diseases; Z87.891 Personal history of nicotine dependence; Z98.51 Tubal ligation status
CPT/HCPCS: 36415; 76937; 80053; 82550; 85025; 85610; 85730; 87426; 96374; 96375; 99152; 99153; C1874; G0378; J2250; J2405

== ENCOUNTER 2021-01-29 08:02 | Day surgery (SDC) | payer OTHER ==
[2021-01-26 09:16] LABS: Basophils # (auto) 0.1 10 ^3/uL (0-0.2); Basophils % (auto) 0.7 % (0.0-2.0); Eosinophils # (auto) 0.2 10 ^3/uL (0-0.8); Eosinophils % (auto) 2.9 % (0.0-7.0); Hematocrit 46.8 % (36.0-46.0); Hemoglobin 15.2 g/dL (12.2-16.2); Lymphocytes # (auto) 1.3 10 ^3/uL (0.4-5.4); Lymphocytes % (auto) 15.6 % (10.0-50.0); Mean Corpuscular Hemoglobin 30.5 pg (28.0-32.0); Mean Corpuscular Hgb Conc. 32.4 g/dL (32.0-36.0); Monocytes # (auto) 0.7 10 ^3/uL (0-1.3); Monocytes % (auto) 8.6 % (0.0-12.0); Neutrophils % (auto) 72.2 % (37.0-80.0); Nucleated Red Blood Cells % 0.1 %; Platelet Count (auto) 241 10^3/uL (140-450); Red Blood Cells 4.98 10^6/uL (4.0-5.20); Red Cell Distribution Width 13.7 % (11.8-14.3); White Blood Cell 8.3 10^3/uL (4.4-10.8)
[2021-01-26 09:47] LABS: INR 1.09 (0.9-1.15)
[2021-01-26 10:05] LABS: Calcium 9.4 mg/dL (8.5-10.1); Potassium 3.7 mmol/L (3.5-5.1)
[2021-01-26 10:09] LABS: BUN/Creatinine Ratio 23.1; Bilirubin, Total 0.4 mg/dL (0.2-1.0); Total Protein 8.7 g/dL (6.4-8.2)
[~2021-01-29] VITALS: Ht 157.5 cm; Wt 43.1 kg
[~2021-01-29 08:02] MED LIST changes: -ASCO500T11 PO; -B-CO1TAB8 PO; -CHOL20007 PO; +CILO100T PO; -COEN400C8 PO; -DORZ1SOL6 OP; +HEPARIN IN NS 1000Units/500mL 1,500 ML ONE; -HYDR-531 PO; -HYDR12.55 PO; +IOPAMIDOL 76 % (ISOVUE-370) 100ML BTL IV ONE; -LATA0.0019 EACHEYE; -MAGN400T40 PO; -MULT-1058 PO; -PRAV20TA3 PO; +ROSU20TA14 PO
[2021-01-29] MEDS ORDERED: LIDOCAINE 2%HCL (LOCAL ANESTH.) INJ 20ML MDV ONE (08:55)
[2021-01-29] MEDS ORDERED: ANGIOMAX 250 MG VIAL IV ONE (09:18)
[2021-01-29] MEDS ORDERED: MIDAZOLAM HCL 1MG/1ML-2 ML VIAL ONE (09:18)
[2021-01-29] MEDS ORDERED: SODIUM CHL 0.9% 50 ML ONE (09:18)
[2021-01-29] MEDS ORDERED: fentaNYL CITRATE 100 MCG/2 ML VL ONE (09:18)
[2021-01-29] MEDS ORDERED: IOPAMIDOL 76 % (ISOVUE-370) 100ML BTL IV ONE (09:21)
[2021-01-29] MEDS ORDERED: ACETAMINOPHEN 500 MG TAB PO PRN (14:15)
[2021-01-29] MEDS ORDERED: HYDROcodone-ACET 5/325MG TAB PO PRN (14:15)
== END 2021-01-29 16:40 | disposition home or self-care (01) ==
LOC: CATH 08:02
PROVIDERS: ATTEND Internal Medicine
DX: I70.212 Atherosclerosis of native arteries of extremities with intermittent claudication, left leg (principal); I10 Essential (primary) hypertension; E78.5 Hyperlipidemia, unspecified; J43.9 Emphysema, unspecified; D68.9 Coagulation defect, unspecified; Z20.822 Contact with and (suspected) exposure to COVID-19; Z98.890 Other specified postprocedural states; Z79.899 Other long term (current) drug therapy; Z87.891 Personal history of nicotine dependence; Z86.718 Personal history of other venous thrombosis and embolism; Z98.51 Tubal ligation status
CPT/HCPCS: 36415; 37220; 75716; 76937; 80053; 85025; 85610; 85730; C1725; C1769; C1876; C1894; J0583; J1644; J2250; J3010; Q9967; U0003; 76942; 99152; 99153

== ENCOUNTER → 2021-02-09 | Outpatient (CLI) | payer OTHER ==
[~2021-02-09] MED LIST changes: -HEPARIN IN NS 1000Units/500mL 1,500 ML ONE; -IOPAMIDOL 76 % (ISOVUE-370) 100ML BTL IV ONE
[2021-02-09 12:45] LABS: Basophils # (auto) 0.1 10 ^3/uL (0-0.2); Basophils % (auto) 0.9 % (0.0-2.0); Eosinophils # (auto) 0.2 10 ^3/uL (0-0.8); Eosinophils % (auto) 3.9 % (0.0-7.0); Hematocrit 40.1 % (36.0-46.0); Hemoglobin 13.6 g/dL (12.2-16.2); Lymphocytes # (auto) 1.4 10 ^3/uL (0.4-5.4); Lymphocytes % (auto) 22.6 % (10.0-50.0); Mean Corpuscular Hemoglobin 30.7 pg (28.0-32.0); Mean Corpuscular Hgb Conc. 33.9 g/dL (32.0-36.0); Mean Corpuscular Volume 90.7 fL (80.0-100.0); Monocytes # (auto) 0.7 10 ^3/uL (0-1.3); Monocytes % (auto) 10.2 % (0.0-12.0); Neutrophils % (auto) 62.4 % (37.0-80.0); Platelet Count (auto) 218 10^3/uL (140-450); Red Blood Cells 4.42 10^6/uL (4.0-5.20); Red Cell Distribution Width 13.9 % (11.8-14.3); White Blood Cell 6.4 10^3/uL (4.4-10.8)
== END | disposition home or self-care (01) ==
LOC: LAB 12:14
PROVIDERS: ATTEND Internal Medicine
DX: I73.9 Peripheral vascular disease, unspecified (principal); Z79.01 Long term (current) use of anticoagulants
CPT/HCPCS: 36415; 84132; 85025

== ENCOUNTER → 2021-12-28 | Outpatient (CLI) | payer MEDICARE, OTHER | END | disposition home or self-care (01) | LOC: XY 11:48 | PROVIDERS: ATTEND Internal Medicine | DX: I73.9 Peripheral vascular disease, unspecified (principal); I70.92 Chronic total occlusion of artery of the extremities | CPT/HCPCS: 93925 ==

== ENCOUNTER 2022-02-07 16:40 | Inpatient (IN) | payer OTHER ==
[~2022-02-07] VITALS: Ht 152.4 cm; Wt 42.7 kg
[2022-02-07 18:30] LABS: Basophils # (auto) 0.2 10 ^3/uL (0-0.2); Basophils % (auto) 1.8 % (0.0-2.0); Eosinophils # (auto) 0 10 ^3/uL (0-0.8); Eosinophils % (auto) 0.4 % (0.0-7.0); Hematocrit 43.2 % (36.0-46.0); Hemoglobin 14.7 g/dL (12.2-16.2); Lymphocytes # (auto) 0.9 10 ^3/uL (0.4-5.4); Lymphocytes % (auto) 8.1 % (10.0-50.0); Mean Corpuscular Hemoglobin 31.1 pg (28.0-32.0); Mean Corpuscular Hgb Conc. 33.9 g/dL (32.0-36.0); Mean Corpuscular Volume 91.7 fL (80.0-100.0); Monocytes # (auto) 0.6 10 ^3/uL (0-1.3); Monocytes % (auto) 5.9 % (0.0-12.0); Neutrophils # (auto) 9.2 10 ^3/uL (1.6-8.6); Neutrophils % (auto) 83.8 % (37.0-80.0); Nucleated Red Blood Cells % 0.1 %; Red Blood Cells 4.71 10^6/uL (4.0-5.20); Red Cell Distribution Width 12.8 % (11.8-14.3)
[2022-02-07 18:50] LABS: Potassium 3.7 mmol/L (3.5-5.1)
[2022-02-07 18:56] LABS: Albumin 3.8 g/dL (3.4-5.0); BUN/Creatinine Ratio 30.5; Bilirubin, Total 0.6 mg/dL (0.2-1.0); Calcium 9.4 mg/dL (8.5-10.1); Total Protein 7.2 g/dL (6.4-8.2)
[2022-02-07] MEDS ORDERED: ACETAMINOPHEN 325 MG TAB PO PRN (19:30)
[2022-02-07] MEDS ORDERED: ONDANSETRON HCL 4 MG/2 ML VIAL IV PRN (19:30)
[2022-02-07] MEDS ORDERED: MORPHINE SULFATE INJECTION 2 MG/ML SYRG IV PRN (19:30)
[2022-02-07] MEDS ORDERED: NITROGLYCERIN 0.4 MG SL TAB SL PRN (19:30)
[2022-02-07] MEDS: HYDROcodone-ACET 5/325MG TAB PO PRN (22:31)
[2022-02-07] MEDS: APIXABAN 2.5 MG TAB PO SCH (22:53)
[2022-02-07] MEDS: ATORVASTATIN 20 MG TAB PO SCH (22:53)
[2022-02-07] MEDS: CLOPIDOGREL BISULFATE 75 MG TAB PO SCH (22:57)
[2022-02-08] MEDS: HYDROcodone-ACET 5/325MG TAB PO PRN ×2 (04:34→21:19)
[2022-02-08 04:46] LABS: Basophils # (auto) 0.1 10 ^3/uL (0-0.2); Basophils % (auto) 1.4 % (0.0-2.0); Eosinophils # (auto) 0.1 10 ^3/uL (0-0.8); Eosinophils % (auto) 0.6 % (0.0-7.0); Hematocrit 38.6 % (36.0-46.0); Hemoglobin 13.1 g/dL (12.2-16.2); Lymphocytes # (auto) 1.3 10 ^3/uL (0.4-5.4); Lymphocytes % (auto) 14.9 % (10.0-50.0); Mean Corpuscular Hemoglobin 31.2 pg (28.0-32.0); Mean Corpuscular Hgb Conc. 33.9 g/dL (32.0-36.0); Monocytes % (auto) 11.4 % (0.0-12.0); Neutrophils # (auto) 6.4 10 ^3/uL (1.6-8.6); Neutrophils % (auto) 71.7 % (37.0-80.0); Nucleated Red Blood Cells % 0.1 %; Red Blood Cells 4.19 10^6/uL (4.0-5.20); Red Cell Distribution Width 12.6 % (11.8-14.3); White Blood Cell 8.9 10^3/uL (4.4-10.8)
[2022-02-08 05:01] LABS: BUN/Creatinine Ratio 43.8; Calcium 9.4 mg/dL (8.5-10.1); Potassium 3.8 mmol/L (3.5-5.1)
[2022-02-08 09:00] VITALS: BP 120/46
[2022-02-08] MEDS ORDERED: ASPirin 81 mg TAB PO SCH (10:00)
[2022-02-08] MEDS ORDERED: CLOPIDOGREL BISULFATE 75 MG TAB PO SCH (10:00)
[2022-02-08] MEDS: APIXABAN 2.5 MG TAB PO SCH (10:11)
[2022-02-08] MEDS ORDERED: ADENOSINE 32 MG in GIVE UN-DILUTED 0 ML IV STA (10:52)
[2022-02-08 10:59] VITALS: BP 160/77
[2022-02-08 13:00] VITALS: BP 143/53
[2022-02-08] MEDS ORDERED: GABAPENTIN 100 MG CAP PO ONE (13:30)
[2022-02-08 17:27] VITALS: BP 153/57
[2022-02-08] MEDS: CLOPIDOGREL BISULFATE 75 MG TAB PO SCH (21:09)
[2022-02-08] MEDS: CILOSTAZOL 100 MG TAB PO SCH (21:10)
[2022-02-08] MEDS: ATORVASTATIN 20 MG TAB PO SCH (21:17)
[2022-02-08] MEDS: TEMAZEPAM 15 MG CAP PO PRN (21:23)
[2022-02-08 22:00] VITALS: BP 120/55
[2022-02-09 03:09] LABS: INR 1.14 (0.9-1.15); Partial Thromboplastin Time 30.1 sec (23.6-33.0)
[2022-02-09 05:00] VITALS: BP 124/55
[2022-02-09 06:03] LABS: Basophils # (auto) 0.1 10 ^3/uL (0-0.2); Eosinophils # (auto) 0.2 10 ^3/uL (0-0.8); Eosinophils % (auto) 3.3 % (0.0-7.0); Hematocrit 36.4 % (36.0-46.0); Hemoglobin 12.3 g/dL (12.2-16.2); Lymphocytes # (auto) 1.7 10 ^3/uL (0.4-5.4); Lymphocytes % (auto) 25.8 % (10.0-50.0); Mean Corpuscular Hemoglobin 30.7 pg (28.0-32.0); Mean Corpuscular Hgb Conc. 33.8 g/dL (32.0-36.0); Mean Corpuscular Volume 90.9 fL (80.0-100.0); Monocytes % (auto) 15.6 % (0.0-12.0); Neutrophils # (auto) 3.6 10 ^3/uL (1.6-8.6); Neutrophils % (auto) 54.3 % (37.0-80.0); Nucleated Red Blood Cells % 0.1 %; Red Cell Distribution Width 12.8 % (11.8-14.3); White Blood Cell 6.6 10^3/uL (4.4-10.8)
[2022-02-09 06:12] LABS: INR 1.16 (0.9-1.15); Partial Thromboplastin Time 30.2 sec (23.6-33.0)
[2022-02-09 06:15] LABS: Potassium 3.7 mmol/L (3.5-5.1)
[2022-02-09 06:21] LABS: BUN/Creatinine Ratio 39.6; Calcium 8.8 mg/dL (8.5-10.1)
[2022-02-09 09:00] VITALS: BP 140/88
[2022-02-09] MEDS ORDERED: MORPHINE SULFATE INJECTION 2 MG/ML SYRG IV ONE (09:45)
[2022-02-09] MEDS: GABAPENTIN 100 MG CAP PO SCH (10:00)
[2022-02-09] MEDS: CILOSTAZOL 100 MG TAB PO SCH ×2 (10:00→21:38)
[2022-02-09 12:48] VITALS: BP 115/54
[2022-02-09] MEDS ORDERED: IODIXANOL 320MG/ML 100ML BTL IV ONE (14:25)
[2022-02-09] MEDS ORDERED: fentaNYL CITRATE 100 MCG/2 ML VL ONE (14:27)
[2022-02-09] MEDS ORDERED: ANGIOMAX 250 MG VIAL IV ONE (14:27)
[2022-02-09] MEDS ORDERED: MIDAZOLAM HCL 2MG/2ML 2ml VIAL (1mg/ml) ONE (14:28)
[2022-02-09] MEDS ORDERED: SODIUM CHL 0.9% 50 ML ONE (14:28)
[2022-02-09] MEDS ORDERED: LIDOCAINE 2%HCL (LOCAL ANESTH.) INJ 10ml MDV ONE ×2 (14:34→15:01)
[2022-02-09 18:56] VITALS: BP 121/60
[2022-02-09 19:43] VITALS: BP 123/76
[2022-02-09] MEDS: HYDROcodone-ACET 5/325MG TAB PO PRN (21:38)
[2022-02-09] MEDS: ATORVASTATIN 20 MG TAB PO SCH (21:38)
[2022-02-09] MEDS: CLOPIDOGREL BISULFATE 75 MG TAB PO SCH (21:38)
[2022-02-09] MEDS: TEMAZEPAM 15 MG CAP PO PRN (21:44)
[2022-02-09 21:57] VITALS: BP 137/67
[2022-02-10 05:02] VITALS: BP 119/55
[2022-02-10 09:00] VITALS: BP 116/66
[2022-02-10] MEDS: GABAPENTIN 100 MG CAP PO SCH (09:53)
[2022-02-10] MEDS: CILOSTAZOL 100 MG TAB PO SCH (09:53)
[2022-02-10] MEDS: HYDROcodone-ACET 5/325MG TAB PO PRN (10:10)
[2022-02-10 13:00] VITALS: BP 106/56
[2022-02-10 17:00] VITALS: BP 104/73
== END 2022-02-10 21:10 | disposition home or self-care (01) | DRG 271 ==
LOC: ER 16:40 → EDBD 16:40 → TELE 19:26 → TELE-WESTW 02-08 09:24
PROVIDERS: ADMIT Nurse Practitioner; ATTEND Internal Medicine
PROC: 047M3ZZ Dilation of Right Popliteal Artery, Percutaneous Approach (ICD-10-PCS; principal; 2022-02-09)
PROC: 04CK3ZZ Extirpation of Matter from Right Femoral Artery, Percutaneous Approach (ICD-10-PCS; 2022-02-09)
PROC: 047T3ZZ Dilation of Right Peroneal Artery, Percutaneous Approach (ICD-10-PCS; 2022-02-09)
PROC: 047K3ZZ Dilation of Right Femoral Artery, Percutaneous Approach (ICD-10-PCS; 2022-02-09)
PROC: B41GYZZ Fluoroscopy of Left Lower Extremity Arteries using Other Contrast (ICD-10-PCS; 2022-02-09)
PROC: B41FYZZ Fluoroscopy of Right Lower Extremity Arteries using Other Contrast (ICD-10-PCS; 2022-02-09)
DX: I73.9 Peripheral vascular disease, unspecified (principal); I20.0 Unstable angina; M84.48XA Pathological fracture, other site, initial encounter for fracture; I10 Essential (primary) hypertension; R54 Age-related physical debility; R07.89 Other chest pain; M54.12 Radiculopathy, cervical region; R91.8 Other nonspecific abnormal finding of lung field; Z20.822 Contact with and (suspected) exposure to COVID-19; E78.5 Hyperlipidemia, unspecified; J44.9 Chronic obstructive pulmonary disease, unspecified; Z82.49 Family history of ischemic heart disease and other diseases of the circulatory system; Z82.5 Family history of asthma and other chronic lower respiratory diseases; Z83.3 Family history of diabetes mellitus; Z98.51 Tubal ligation status
CPT/HCPCS: 36415; 37225; 37228; 71045; 71250; 72141; 74176; 75716; 78452; 80048; 80053; 84484; 85025; 85379; 85610; 85730; 86850; 86900; 86901; 93005; 93017; 93306; 96365; 99152; C1887; G0378; J0153; J2001; J2250; Q9967